=== PATIENT | male | born 1960 | race Caucasian/White ===

== ENCOUNTER 2017-09-03 06:01 | Inpatient (IN) | payer BC ==
[2017-09-03] MEDS ORDERED: Ketamine 50 MG/ML VIAL ONE (06:11)
[2017-09-03] MEDS ORDERED: Albumin 5% 500 ML ONE (06:11)
[2017-09-03] MEDS ORDERED: Midazolam HCl 2 mg/2 ml Vial ONE ×2 (06:11→06:35)
[2017-09-03] MEDS ORDERED: Fentanyl 100 MCG/2 ML VIAL ONE ×7 (06:11→13:29)
[2017-09-03] MEDS ORDERED: Ketorolac Tromethamine 30 MG/ML VIAL ONE (06:39)
[2017-09-03] MEDS ORDERED: Cefepime 2 GM, Syringe 2.5 ML in Sterile Water 10 ML SLOW IVP SCH (06:45)
[2017-09-03] MEDS ORDERED: Insulin Regular 300 UNITS/3 ML VIAL ONE (06:50)
[2017-09-03 06:52] LABS: #Basophils 0.1 thou/uL (0.0-0.2); #Eosinphils 0.7 thou/uL (0.0-0.7); #Lymphocytes 2.7 thou/uL (1.20-3.40); #Monocytes 0.7 thou/uL (0.11-0.59); #Neutrophils 5.6 thou/uL (1.40-6.50); %Basophils 0.5 % (0.0-1.0); %Eosinophils 7.2 % (0.0-10.0); %Lymphocytes 27.8 % (21.0-51.0); %Monocytes 7.3 % (0.0-10.0); %Neutrophils 57.2 % (42.0-75.0); Hemoglobin 16.3 g/dL (14.0-18.0); Mean Corpuscular HGB CONC 32.4 g/dL (32.0-36.0); Mean Corpuscular Hemoglobin 26.8 pg (27.0-31.0); Mean Corpuscular Volume 82.5 fl (80.0-94.0); Mean Platelet Volume 9.3 fL (7.4-10.4); Platelet Count 211 thou/uL (130-400); RBC Distribution Width 13.2 % (11.5-14.5); White Blood Cell (WBC) Count 9.7 thou/uL (4.8-10.8)
[2017-09-03] MEDS ORDERED: Lidocaine 1% w/Epinephrine 1:200K 30 ML VIAL ONE (07:09)
[2017-09-03 07:15] LABS: Hemoglobin A1c 10.6 % (4.0-6.0)
[2017-09-03 07:22] LABS: Anion Gap 16 mmol/L (10-20); BUN (Urea Nitrogen) 14 mg/dL (8.4-25.7); Calc. Creatinine Clearance 85 mL/min (70-130); Carbon Dioxide 22 mmol/L (22-29); Chloride 99 mmol/L (98-107); Estimated GFR-MDRD 57; Glucose 290 mg/dL (70-105); Potassium 3.9 mmol/L (3.5-5.1); Sodium 133 mmol/L (136-145)
[2017-09-03] MEDS ORDERED: cefOXitin 2 GM in Sodium Chloride 0.9% 100 ML IVPB SCH ×2 (07:30→14:25)
[2017-09-03] MEDS ORDERED: cefOXitin 2 GM VIAL ONE (09:55)
[2017-09-03] MEDS ORDERED: Bupivacaine HCl 0.5%/Epinephrine 1:200,000/PF 30 ml Vial ONE (10:43)
[2017-09-03] MEDS ORDERED: Bupivacaine PF 0.5% 30 ML VIAL ONE (10:43)
[2017-09-03] MEDS ORDERED: Glycopyrrolate 0.2 MG/ML 5 ML SYRINGE ONE (11:24)
[2017-09-03] MEDS ORDERED: Dexamethasone 20 MG/5 ML VIAL ONE (11:24)
[2017-09-03] MEDS ORDERED: Propofol 200 MG/20 ML VIAL ONE (11:24)
[2017-09-03] MEDS ORDERED: Ondansetron HCl/PF 4 MG/2 ML Vial ONE (11:24)
[2017-09-03] MEDS ORDERED: PHENYLEPHRINE-NS 100 MCG/ML 10 ML SYRINGE ONE (11:24)
[2017-09-03] MEDS ORDERED: Promethazine HCl 25 MG/ML VIAL SLOW IVP PRN (11:43)
[2017-09-03] MEDS ORDERED: Ondansetron HCl/PF 4 MG/2 ML Vial IVP PRN ×2 (11:43→14:25)
[2017-09-03] MEDS ORDERED: HYDROmorphone 2 MG/ML VIAL SLOW IVP PRN (11:43)
[2017-09-03] MEDS ORDERED: Promethazine HCl 25 MG/ML VIAL IM PRN ×2 (11:43→14:25)
[2017-09-03] MEDS ORDERED: Labetalol HCl 100 MG/20 ML VIAL ONE (13:17)
[2017-09-03] MEDS ORDERED: Morphine 2 MG/ML SYRINGE SLOW IVP PRN (14:25)
[2017-09-03] MEDS ORDERED: Post-Op Insulin Drip Protocol IVPB ONE (14:25)
[2017-09-03] MEDS ORDERED: hydrALAZINE 20 MG/ML VIAL SLOW IVP PRN (14:25)
[2017-09-03] MEDS ORDERED: Dextrose 50% Abboject 50 ML SYRINGE SLOW IVP PRN (14:39)
[2017-09-03] MEDS ORDERED: Insulin Regular 300 UNITS/3 ML VIAL SC PRN (14:39)
[2017-09-03] MEDS ORDERED: Dextrose 5% in Water 1,000 ML IV PRN (14:39)
[2017-09-03 15:18] VITALS: BMI 30.7
[2017-09-03] MEDS: Sodium Chloride 0.9% 1,000 ML IV SCH (16:24)
[2017-09-03] MEDS: Ketorolac Tromethamine 30 MG/ML VIAL IVP SCH ×2 (16:24→20:57)
[2017-09-03] MEDS: Acetaminophen 1,000 MG in Premix Bag 1 BAG IVPB SCH ×2 (16:25→20:55)
[2017-09-03] MEDS: Mometasone/Formoterol 120 PUFF INHALER INH SCH (18:23)
[2017-09-03] MEDS: cefOXitin 2 GM, Syringe 1 ML in Sterile Water 10 ML SLOW IVP SCH (18:49)
[2017-09-03] MEDS: Morphine 2 MG/ML SYRINGE SLOW IVP PRN (18:49)
[2017-09-03] MEDS: Enoxaparin Sodium 40 MG/0.4 ML SYRINGE SC SCH (20:55)
[2017-09-03] MEDS: Citalopram 20 MG TAB PO SCH (20:57)
[2017-09-03] MEDS: Atorvastatin Calcium 40 MG TAB PO SCH (20:57)
[2017-09-03] MEDS: Famotidine 20 MG TAB PO SCH (20:59)
[2017-09-03] MEDS ORDERED: Famotidine/PF 20 mg/2ml Vial SLOW IVP SCH (21:00)
[2017-09-03] MEDS: Mirtazapine 30 MG TAB PO SCH (22:21)
[2017-09-04] MEDS: Sodium Chloride 0.9% 1,000 ML IV SCH ×3 (00:03→17:01)
[2017-09-04] MEDS: Ketorolac Tromethamine 30 MG/ML VIAL IVP SCH ×4 (02:18→21:26)
[2017-09-04] MEDS: cefOXitin 2 GM, Syringe 1 ML in Sterile Water 10 ML SLOW IVP SCH (02:18)
[2017-09-04] MEDS: Acetaminophen 1,000 MG in Premix Bag 1 BAG IVPB SCH ×2 (02:19→10:23)
[2017-09-04 04:20] LABS: #Lymphocytes 1.3 thou/uL (1.20-3.40); #Neutrophils 7.9 thou/uL (1.40-6.50); %Basophils 0.1 % (0.0-1.0); %Eosinophils 0.1 % (0.0-10.0); %Monocytes 9.3 % (0.0-10.0); %Neutrophils 77.6 % (42.0-75.0); Hemoglobin 12.4 g/dL (14.0-18.0); Mean Corpuscular HGB CONC 32.3 g/dL (32.0-36.0); Mean Corpuscular Hemoglobin 26.9 pg (27.0-31.0); Mean Corpuscular Volume 83.3 fl (80.0-94.0); Mean Platelet Volume 9.1 fL (7.4-10.4); Platelet Count 160 thou/uL (130-400); White Blood Cell (WBC) Count 10.2 thou/uL (4.8-10.8)
[2017-09-04 04:52] LABS: Anion Gap 12 mmol/L (10-20); BUN (Urea Nitrogen) 15 mg/dL (8.4-25.7); Calc. Creatinine Clearance 90 mL/min (70-130); Calcium 8.3 mg/dL (7.8-10.44); Carbon Dioxide 23 mmol/L (22-29); Chloride 105 mmol/L (98-107); Estimated GFR-MDRD 67; Glucose 141 mg/dL (70-105); Potassium 4.1 mmol/L (3.5-5.1); Sodium 136 mmol/L (136-145)
[2017-09-04] MEDS: Mometasone/Formoterol 120 PUFF INHALER INH SCH ×2 (07:50→18:55)
[2017-09-04] MEDS ORDERED: Insulin Detemir 100 UNITS/ML 20 UNITS in Pre-Filled Syringe 1 EACH SC SCH (08:45)
--- NOTE | 2017-09-04 10:07 | PRG ---
DATE OF SERVICE: 09/04/2017 SUBJECTIVE: Mr. Lebron is postoperative day #1 from laparoscopic sigmoid colectomy for diverticuli tis. His operation was relatively prolonged secondary to his intra-abdominal obesity and repair of a n air leak in his stapled anastomosis. He has been in the intermediate care unit overnight on an ins ulin drip. His blood sugars have been well controlled. For most of the night, he was on 4.5 units o f insulin per hour. His blood sugars since he arrived here have never gone higher than 170. Most of the night, it has been around 130. He has no complaints at this time. He notes mild appropriate discomfort. He unfortunately has not b een out of bed yet here in the IM. OBJECTIVE: VITAL SIGNS: On examination, he is afebrile. His temperature is 98, pulse is 71, blood pressure is 113/73. GENERAL: He is resting comfortably in bed. He tells me he got reasonable amount of sleep. He has r eceived intravenous narcotics only couple of times since surgery. His urine output was over 1 liter overnight. His pelvic drained about 90 mL for all of yesterday since surgery. LUNGS: Clear to auscultation. CARDIAC: Regular rate and rhythm without murmur. ABDOMEN: Obese, but soft with normoactive bowel sounds. All incisions are nicely healed. Drain sit e in the right lower quadrant appears to be healing well also. LABORATORY STUDIES: His basic metabolic panel this morning is normal with the glucose of 140. His C BC reveals hemoglobin of 12.4, white blood cell count is 10.2. ASSESSMENT AND PLAN: In summary, he is doing well following his surgery. Per protocol, he has been maintained on the insulin drip overnight, but will be transitioned off of that this morning and trans ferred to the surgical floor to continue on the sliding scale insulin. Depending upon progress with his diet and activity, I would anticipate discharge within the next 24-48 hours.
[2017-09-04] MEDS: Famotidine 20 MG TAB PO SCH ×2 (10:24→21:27)
[2017-09-04] MEDS: Amlodipine 5 MG TAB PO SCH (10:24)
[2017-09-04] MEDS: Insulin Regular 300 UNITS/3 ML VIAL SC PRN (12:46)
[2017-09-04] MEDS ORDERED: HYDROcodone/Acetaminophen 7.5/325 mg Tablet PO PRN ×2 (13:00)
[2017-09-04] MEDS: Morphine 2 MG/ML SYRINGE SLOW IVP PRN (17:02)
[2017-09-04] MEDS ORDERED: Sodium Chloride 0.9% 1,000 ML IV SCH (17:30)
[2017-09-04] MEDS ORDERED: PROVENTIL INHALER 6.7 G (200 INHALATIONS) INH PRN (17:39)
[2017-09-04] MEDS: Ipratropium Bromide 2.5 ml Neb NEB SCH (20:12)
[2017-09-04] MEDS: Citalopram 20 MG TAB PO SCH (21:27)
[2017-09-04] MEDS: Enoxaparin Sodium 40 MG/0.4 ML SYRINGE SC SCH (21:27)
[2017-09-04] MEDS: Atorvastatin Calcium 40 MG TAB PO SCH (21:33)
[2017-09-04] MEDS: NPH, Human Insulin Isophane 300 UNIT/3 ML VIAL SC SCH (21:35)
[2017-09-04] MEDS: Mirtazapine 30 MG TAB PO SCH (21:59)
[2017-09-05] MEDS: Ipratropium Bromide 2.5 ml Neb NEB SCH ×3 (01:46→13:55)
[2017-09-05] MEDS: Ketorolac Tromethamine 30 MG/ML VIAL IVP SCH ×3 (03:02→15:56)
[2017-09-05 05:24] LABS: #Basophils 0.1 thou/uL (0.0-0.2); #Eosinphils 0.1 thou/uL (0.0-0.7); #Lymphocytes 1.7 thou/uL (1.20-3.40); #Monocytes 0.4 thou/uL (0.11-0.59); #Neutrophils 3.6 thou/uL (1.40-6.50); %Eosinophils 1.7 % (0.0-10.0); %Lymphocytes 28.9 % (21.0-51.0); %Monocytes 7.3 % (0.0-10.0); %Neutrophils 61.1 % (42.0-75.0); Hemoglobin 11.3 g/dL (14.0-18.0); Mean Corpuscular HGB CONC 32.4 g/dL (32.0-36.0); Mean Corpuscular Hemoglobin 27.2 pg (27.0-31.0); Mean Corpuscular Volume 84.1 fl (80.0-94.0); Mean Platelet Volume 9.3 fL (7.4-10.4); Platelet Count 124 thou/uL (130-400); Red Blood Cell (RBC) Count 4.14 mill/uL (4.70-6.10); White Blood Cell (WBC) Count 5.9 thou/uL (4.8-10.8)
--- NOTE | 2017-09-05 06:18 | OP ---
DATE OF OPERATION: 09/03/2017 PREOPERATIVE DIAGNOSIS: Diverticulitis. POSTOPERATIVE DIAGNOSIS: Diverticulitis. OPERATION PERFORMED: Laparoscopic hand-assisted sigmoid colectomy with splenic flexure mobilization. SURGEON: Dontrell Gilmore M.D. ANESTHESIA: General endotracheal. INDICATIONS: The patient is a 57-year-old white male. He has been hospitalized several times recent ly with documented diverticulitis. He presents at this time for elective sigmoid colectomy. He has undergone preoperative mechanical and antibiotic bowel prep. He was encouraged to lose weight in pre paration for surgery secondary his extensive abdominal obesity; however, he unfortunately did not do so. DESCRIPTION OF OPERATIVE: Informed consent was obtained. The patient was taken to the operating mikaela m where general endotracheal anesthesia was obtained with the patient in the supine position. The ab domen was prepped with ChloraPrep and draped in sterile fashion. Local anesthetic was infiltrated an d a 5-mm supraumbilical incision was created through, which a Veress needle was passed into the perit teixeira cavity. Pneumoperitoneum was established using carbon dioxide up to a pressure of 15 mmHg. A 5-mm trocar port was passed through this same incision. Laparoscopic camera was passed through this port. Under direct vision, a 12-mm right lower quadrant port was placed. The abdomen and pelvis wer e examined. I selected a site for the colon extraction in the left lower quadrant. An 8-cm oblique left lower quadrant incision was created and muscle splitting technique was used to gain access into the abdominal cavity. The Paulino wound retractor was placed followed by the GelPort. Left hand was passed into the abdominal cavity and dissection was continued. There were adhesions to the anterior abdominal wall in the left lower quadrant. These were taken down using LigaSure. They were also extensive omental adhesions in the right lower quadrant. These were mobilized as was the terminal ileum. The patient was placed into extreme Trendelenburg position to attempt to mobilize th e small bowel and omentum into the upper abdomen. Due to his obesity, this was found to be difficult . Laparotomy pad was placed in the abdomen to assist with this. Attention was then turned to the si gmoid colon. This was mobilized from the lateral abdominal wall using the LigaSure device. I mobili zed the sigmoid colon and the left colon superiorly by incising the white line of Toldt. At all poin ts, this dissection was challenging. I was able to mobilize up to the splenic flexure. I then mobil ized the omentum off of the distal transverse colon in order to fully mobilize the splenic flexure. Once adequate mobility was obtained, attention was turned towards the pelvis. The area of dominant d iverticular disease was clearly identified in the sigmoid colon. I dissected the peritoneal lining o f the distal sigmoid colon extending down into the pelvis alongside the rectum of the patient's right side. I then mobilized the peritoneum on the left side as well. I was able to clearly identify by palpation and visualization the rectosigmoid junction, which was clearly free of disease. The mesent keenan at this port was divided with the LigaSure device. A mesenteric window was created, and at this point, the upper rectum was divided with a single fire of the blue load of the [place] stapler. The mesentery was taken down close to the bowel in an ascending fashion using the LigaSure. After mobili zing a little over 5 cm, I identified a segment of the descending colon that would easily reach down into the pelvis for an anastomosis. This was marked with the LigaSure device. The operation was the n continued externally as the colon was mobilized externally. The segment that had been marked was i dentified. The mesentery up to this segment was fully taken down using the LigaSure device. The wound was draped with sterile towels. A colotomy was created and EEA sizers were used to calibra te the size of the opening. This was found to be relatively narrow and would not tolerate more than a 28-mm sizer. I then opened the 29-mm EEA stapler and the anvil of this stapler was passed through the colotomy a few centimeters distally and brought out antimesenteric. The colotomy was then exclud ed in continuity with the segment to be resected with a final firing of the [place] stapler. This se gment of colon was passed off the field. All instruments utilized while the colon was opened were pa ssed off the field, as was the cautery and suction. Gloves were changed at this point. The post of the anvil was cleansed with Betadine. A pursestring suture of 3-0 Prolene was placed rich und the base of the anvil and the proximal segment of colon was dropped back down into the abdominal cavity. From below, the EEA sizers were gently passed up to the rectal staple line under visible and palpable guidance. The 29-mm stapler was then advanced up to the staple line and the spike was advanced. Th e 2 segments of bowel were approximated and then anastomosed by firing the stapler. When the stapler was withdrawn, the donuts were inspected and found to be of excellent quality. The anastomosis was then inspected to make sure that it was airtight with an insufflation test. Unfo rtunately, there were 2 separate air leaks. One of these was in the central anterior aspect and one was to the left anterior aspect. I buttressed the anterior staple line with 3 interrupted figure-of- eight sutures of 3-0 Vicryl. These were each tied extracorporeally. The air leak test was repeated several times, and after placing a third suture, there was no evidence of any further leakage in spit e of high pressure insufflation. All irrigant was aspirated. A #19 round fluted drain was obtained and brought out through the right lower quadrant incision and positioned down within the pelvis. The fascial defect in the right lower quadrant wound was closed with 0 Vicryl suture using a GraNee need le. All ports and instruments were removed under direct vision. Pneumoperitoneum was carefully evac uated. A 0.25% percent Marcaine with epinephrine was infiltrated into each port site. The abdominal wall was cleansed, and all laparoscopic instrumentation was removed from the field. Go wns and gloves were changed. Four sterile towels were placed around the abdomen in preparation for c losing. The fascia was closed in 2 layers using running suture of #1 PDS. The pulse chlorine plant operator devic e was utilized to irrigate the wound with copious saline. During each layer of closing. A total of 2 liters of irrigant was used. The remainder of the wound was closed in layers with 3-0 and 4-0 [place] cryl and Dermabond was placed externally. The laparoscopic port site was closed with 4-0 Monocryl an d Dermabond. The drain was secured externally with 3-0 nylon suture and a sterile occlusive dressing was applied. There were no complications. Blood loss was negligible. The patient tolerated the pr ocedure well and was taken to recovery room in stable condition.
[2017-09-05] MEDS: Mometasone/Formoterol 120 PUFF INHALER INH SCH (07:06)
[2017-09-05] MEDS ORDERED: Sodium Chloride 0.9% 1,000 ML IV SCH (07:45)
[2017-09-05] MEDS: Famotidine 20 MG TAB PO SCH (09:20)
[2017-09-05] MEDS: Amlodipine 5 MG TAB PO SCH (09:26)
[2017-09-05] MEDS: NPH, Human Insulin Isophane 300 UNIT/3 ML VIAL SC SCH (09:26)
[2017-09-05] MEDS: Insulin Regular 300 UNITS/3 ML VIAL SC PRN (11:57)
[2017-09-05 16:26] VITALS: BP 132/79; TEMP 97.8
--- NOTE | 2017-09-05 19:51 | EKG ---
Test Reason : PREOP Blood Pressure : / mmHG Vent. Rate : 090 BPM Atrial Rate : 090 BPM P-R Int : 174 ms QRS Dur : 088 ms QT Int : 368 ms P-R-T Axes : 065 -64 039 degrees QTc Int : 450 ms Normal sinus rhythm Left axis deviation Inferior infarct , age undetermined Cannot rule out Anterior infarct , age undetermined Abnormal ECG Confirmed by YVETTE MAR, DR. Casas ([id number]) on 09/05/2017 7:51:24 PM Referred By: MAKENZIE Confirmed By:DR. Yessenia CRAWFORD MD
--- NOTE | 2017-09-05 22:51 | DIS ---
DATE OF ADMISSION: 09/03/2017 DATE OF DISCHARGE: 09/05/2017 ADMISSION DIAGNOSIS: Sigmoid colon diverticulitis. DISCHARGE DIAGNOSIS: Sigmoid colon diverticulitis. OPERATIONS AND PROCEDURES PERFORMED: Hand-assisted laparoscopic sigmoid colectomy. SURGEON: Dontrell Gilmore M.D. ADMISSION HISTORY: The patient is a 57-year-old white male with central abdominal obesity and divert iculitis. He presented at this time for a sigmoid colectomy. HOSPITAL COURSE: He underwent uneventful surgery on the day of admission. He did have an air leak d uring his leak test and his anastomosis was oversewed with Vicryl suture. The drain was placed withi n the pelvis. The patient has had an uneventful recovery. He has had no substantial postoperative i leus. He tolerated clear liquids on postoperative day #1 and full liquids on postoperative day #2. He has had several bowel movements and has been having flatus. He denies belching, nausea, or vomiti ng. He has been afebrile with normal vital signs. His laboratory studies have been unremarkable. Carlos florez is stable at this time for discharge home. He is given a prescription for [place] to use as necessar y. He is instructed to resume all home medications including his insulin. His drain will be removed prior to discharge. I will see him back in my office in 10 to 14 days for routine followup.
== END 2017-09-05 18:50 | disposition home or self-care (01) | DRG 330 ==
LOC: SURG A 06:01 → IMCU/EMU 13:13 → SJJU 09-04 15:56
PROVIDERS: ADMIT Specialist; ATTEND Specialist
PROC: 0DTN0ZZ Resection of Sigmoid Colon, Open Approach (ICD-10-PCS; principal; 2017-09-03)
DX: K57.32 Diverticulitis of large intestine without perforation or abscess without bleeding (principal); J95.812 Postprocedural air leak; E66.9 Obesity, unspecified; E11.9 Type 2 diabetes mellitus without complications; I10 Essential (primary) hypertension; I25.10 Atherosclerotic heart disease of native coronary artery without angina pectoris; Z68.31 Body mass index [BMI] 31.0-31.9, adult; Z88.2 Allergy status to sulfonamides; Z79.82 Long term (current) use of aspirin; Z79.4 Long term (current) use of insulin; Z79.899 Other long term (current) drug therapy
CPT/HCPCS: 36415; 36416; 80048; 83036; 85025; 88307; 93005; 93010; A4216; J0131; J0670; J0692; J0694; J1100; J1650; J1815; J1885; J2250; J2270; J2405; J2704; J3010; J7050; J7644; P9045; S0020

== ENCOUNTER 2018-08-29 12:21 | Emergency (ER) | payer BC ==
[2018-08-29] MEDS ORDERED: Morphine 4 MG/ML VIAL ONE (15:37)
--- NOTE | 2018-08-29 22:37 | CON ---
DATE OF CONSULTATION: 08/29/2018 CONSULTING: Emergency Room. CONSULTED: Dr. Nova. REASON FOR CONSULTATION: Left ureteral stone with calyceal rupture. HISTORY OF PRESENT ILLNESS: Mr. Lebron is a 58-year-old white male, who presented to the emergency room with a 1-day history of left flank pain. He did not have any associated nausea, vomiting, or fevers, and the pain started in his left flank without radiation to the groin. The pain was rated as a 7/10 and so he came into the emergency room due to the uncontrolled pain initially at an outside ER and was then transferred to [facility]. He underwent a CT which demonstrated a 2-mm distal left ureterovesical junction stone with associated collecting system rupture. I was consulted for further assistance. On my discussion with the patient, he states again that he has not had any fevers or chills, nausea or vomiting. His pain is currently 7/10, but he has not received pain medication since leaving the other ER and is hurting somewhat again. He has never had kidney stones and this is his first stone. He states that he normally urinates without much difficulty and he denies any significant hematuria or any history of hematuria, UTI, previous urologic surgeries, or other stones. ALLERGIES: SULFA. HOME MEDICATIONS: 1. Aspirin. 2. Amlodipine. 3. Neurontin. 4. Metformin. 5. Proventil. 6. Protonix. 7. Atorvastatin. 8. Isosorbide mononitrate. 9. Symbicort. 10. Spiriva. 11. Citalopram. 12. Loratadine. 13. Glipizide. 14. Mirtazapine. 15. Carafate. 16. Trulicity. PAST MEDICAL HISTORY: 1. Type 2 diabetes. 2. Gastroesophageal reflux disease. 3. Hyperlipidemia. 4. High cholesterol. 5. Hypertension. 6. Osteoarthritis. 7. COPD. 8. Cardiomyopathy. 9. Diverticulitis. PAST SURGICAL HISTORY: 1. Cholecystectomy. 2. Tonsillectomy. 3. Pacemaker placement. 4. Partial colectomy. SOCIAL HISTORY: The patient has no smoking history. Denies alcohol use or illicit drug use. FAMILY HISTORY: Noncontributory for stone disease. REVIEW OF SYSTEMS: A 12-point review of systems reviewed and otherwise negative other than comments in the HPI specifically with the patient's flank pain. The patient is not complaining of any other issues. PHYSICAL EXAMINATION: VITAL SIGNS: Temperature 97.7, pulse 76, respirations 17, blood pressure 183/84, saturation 95% on room air. Pain 7/10. GENERAL: No apparent distress, sitting comfortably in bed, talking with me. No wincing or grimacing features. Well-nourished, well-developed obese male. HEENT: Normocephalic and atraumatic. Sclerae nonicteric. Pupils symmetric and round. Trachea midline. Moist mucous membranes. CARDIOVASCULAR: Regular rate and rhythm. Normal S1 and S2. Symmetric pulses. CHEST: No increased work of breathing. Symmetric expansion. LUNGS: Clear to auscultation. ABDOMEN: Soft, nontender, and nondistended. Positive bowel sounds. No organomegaly or suprapubic tenderness. There is mild left CVA tenderness. : Deferred at this time. MUSCULOSKELETAL: No joint deformities or joint erythema noted. Full range of motion. SKIN: Warm and dry. No rashes or lesions. Good turgor. NEUROLOGIC: Cranial nerves 2 through 12 grossly intact. No focal or sensory motor deficits identified. PSYCHIATRIC: Alert and oriented x3. Appropriate mood and affect. LABORATORY DATA: Full set of labs are in the [facility] system. Of note, the patient's creatinine is mildly elevated at 1.39 with a sodium of 134. Urinalysis demonstrates glucose over 1000, ketones trace, blood trace, nitrite negative, leukocyte esterase negative. No bacteria or WBC seen. CT demonstrated 2 mm left ureterovesical junction calculus with associated collecting system rupture on the left with other chronic findings including diverticula without fat stranding or evidence of bowel obstruction. ASSESSMENT AND PLAN: A 58-year-old white male with a left ureterovesical junction stone with likely calyceal rupture with a minimal amount of urine around the kidney. He has no evidence of infection. No fevers and only very mild impairment of his renal function. There is no strong indication to intervene at this time as the patient seems to be doing quite well. With 2 mm stone, he has 90% chance that he will pass that within a week with tamsulosin. I would recommend hydrocodone for pain medication, tamsulosin for medical expulsive therapy and hydration. He should attempt to keep his blood sugar as well controlled as possible. I recommended he perform light activities only and avoid anything strenuous and avoid driving until he knows how the hydrocodone reacts with him. I will plan to see him back in 1 week with a new BMP to ensure that his renal function is normal or at least not worsening and that he has passed his stone. If he has not yet passed the stone, then I would make recommendations to go ahead and perform a ureteroscopy and remove the stone. I have discussed this all with the patient and he is agreement with the plan. I think he can be discharged home at this time. SUMMARY OF RECOMMENDATIONS: 1. Flomax. 2. Pain medication. 3. Okay to discharge home. 4. Follow up in 1 week with a BMP. 5. We will plan surgery if the patient fails to pass the stone in one week, develops fevers, uncontrolled pain, or persistent vomiting. Job ID: [id number]
== END 2018-08-29 16:03 | disposition home or self-care (01) ==
LOC: ERS 12:21
DX: N20.0 Calculus of kidney (principal); N28.89 Other specified disorders of kidney and ureter; I25.10 Atherosclerotic heart disease of native coronary artery without angina pectoris; E11.9 Type 2 diabetes mellitus without complications; K21.9 Gastro-esophageal reflux disease without esophagitis; E78.00 Pure hypercholesterolemia, unspecified; I10 Essential (primary) hypertension; J44.9 Chronic obstructive pulmonary disease, unspecified; F32.9 Major depressive disorder, single episode, unspecified
CPT/HCPCS: 96374; J2270

== ENCOUNTER 2018-09-05 13:29 | Outpatient (CLI) | payer BC | END 2018-09-05 13:30 | disposition home or self-care (01) | LOC: LABBT 13:29 | PROVIDERS: ATTEND Urology | DX: Z01.818 Encounter for other preprocedural examination (principal); N20.1 Calculus of ureter | CPT/HCPCS: 81001; 87086; 93005; 93010 ==

== ENCOUNTER 2018-09-11 11:07 | Day surgery (SDC) | payer BC ==
[2018-09-05 14:01] VITALS: BMI 31.4
[2018-09-11] MEDS ORDERED: Levofloxacin 500 mg/D5W 100 ml Premix Bag ONE ×2 (13:36→14:38)
[2018-09-11] MEDS ORDERED: Fentanyl 100 MCG/2 ML VIAL ONE ×2 (14:43→16:42)
[2018-09-11] MEDS ORDERED: Iothalamate Meglumine 60% 50 ML VIAL FS ONE (14:48)
[2018-09-11] MEDS ORDERED: B & O ONE (14:50)
[2018-09-11] MEDS ORDERED: Dexamethasone 20 MG/5 ML VIAL ONE (15:42)
[2018-09-11] MEDS ORDERED: Lidocaine 1% PF 5 ML VIAL ONE (15:42)
[2018-09-11] MEDS ORDERED: Ketorolac Tromethamine 30 MG/ML VIAL ONE (15:42)
[2018-09-11] MEDS ORDERED: Ondansetron PF 4 MG/2 ML Vial ONE (15:42)
[2018-09-11] MEDS ORDERED: Glycopyrrolate 0.2 MG/ML 5 ML SYRINGE ONE (15:42)
[2018-09-11] MEDS ORDERED: PROPOFOL 200 MG/20 ML VIAL ONE (15:42)
[2018-09-11] MEDS ORDERED: Rocuronium Bromide 10 MG/ML (10ML VIAL) ONE (15:42)
--- NOTE | 2018-09-11 16:26 | OP ---
DATE OF PROCEDURE: 09/11/2018 SERVICE: Urology. PREOPERATIVE DIAGNOSIS: Left distal ureteral stone. POSTOPERATIVE DIAGNOSIS: Left ureteral stricture with renal stone. PROCEDURE PERFORMED: Ureteroscopy, dilation of ureteral stricture, basket extraction of stones, and placement of a 6 x 26 double-J stent. INDICATIONS FOR PROCEDURE: Mr. Lebron is a 58-year-old white male, who initially presented to the ER with left flank pain and a calyceal rupture. He was diagnosed with a 2-to 3-mm distal left ureteral stone. We waited for trial of passage for the stone, but the patient states he never passed a stone and he has continued to be in significant pain. We are now bringing him to the operating room for treatment of the stone. DESCRIPTION OF PROCEDURE: After identification of armband and verification of consent, the patient was brought back to the operating room. He underwent general anesthesia with an LMA. He was then placed in dorsal lithotomy position and prepped and draped in usual sterile fashion. After appropriate time-out, a lubricated 22-Cymro rigid cystoscope was introduced per urethra into the bladder and attention was turned to the left ureteral orifice. This was cannulated with a 0.035 Sensor wire up to the level of the renal pelvis. The cystoscope was then removed after emptying the bladder leaving the Sensor wire in place as a safety wire. A semi-rigid ureteroscope was then brought in alongside the Sensor wire through the urethra into the bladder and then into the distal left ureter, where an extremely narrow segment was found. Attempts to dilate this using the inner sheath of a ureteral access sheath, an 11-Cymro dilator was unable to be passed. Reinspecting the stricture with the ureteroscope, it did appear to be an actual stricture rather than just a narrowed segment. As such, I figured to formally balloon dilate this, so the area was marked radiographically and then a UroMax balloon dilator with a 12-Cymro 4-cm dilator was brought in through the ureter over the wire with a radiopaque markers positioned on either side of the stricture. The balloon was inflated to 26 atmospheres for a length of 4 cm to fully dilate. The balloon was taken down and the balloon was removed. The ureteroscope was then brought back in to perform ureteroscopy alongside the Sensor wire into the distal ureter. The stricture was now widely patent and inspection demonstrated no ureteral stone. It was certainly possible that after the balloon was removed, that the stone immediately passed without my knowledge, but I did not see the stone within the ureter at this point to make sure that the stone had not inadvertently been blown retrograde up into the kidney, I felt it would be best to go perform a diagnostic ureteroscopy to ensure that there were no other stones within the kidney. Therefore, the semi-rigid ureteroscope was withdrawn and the same ureteral access sheath, which we had opened before, was brought in over the Sensor wire and placed up into the distal to mid ureter. This was an 11/13 x 28 cm ureteral access sheath. The inner cannula and the Sensor wire were then removed leaving the sheath in place. A flexible digital ureteroscope was passed through the ureteral access sheath into the mid to proximal ureter and no stone was seen. Full inspection of the kidney was performed and there were two small renal stones, which were adherent to the renal papilla. This would not be the stones that we had previously been seen as they were fixed to the papilla indicating that they were new stone formation. Both of them were able to be grasped with a 1.9-Cymro Zero Tip Nitinol basket and extracted for stone analysis. No other stones were seen within the kidney. Pull-back ureteroscopy was employed and no other stones were seen within the ureter. Satisfied that the stone had either passed previously or it passed after the balloon dilation, I felt that there was no other treatment needed other than just the stent. The ureteral access sheath was then removed along with the ureteroscope. The cystoscope was then put back into the bladder and the Sensor wire was readvanced through the ureteral orifice back up into the kidney. A 6 x 26 double-J stent was advanced over the Sensor wire up to the level of the renal pelvis. The wire was then removed leaving a good curl in the pelvis and good curl in the bladder. Bladder was then emptied and the cystoscope was removed. The patient was then awakened and taken to PACU for recovery in stable condition. A 16-A, B and O suppository was placed in his rectum prior to awakening. COMPLICATIONS: None. ESTIMATED BLOOD LOSS: Minimal. RETAINED TUBES AND DRAINS: 6 x 26 double-J stent on the left. SPECIMENS: Stones for stone analysis. DISPOSITION: The patient will be discharged home and follow up with me in approximately 2 weeks for cystoscopy and stent removal. Job ID: [id number]
[2018-09-11] MEDS ORDERED: Phenazopyridine HCl 97.5 MG TABLET ONE ×2 (16:58)
[2018-09-11] MEDS ORDERED: Oxybutynin 5 MG TAB ONE (16:58)
[2018-09-17 08:20] LABS: CA Oxalate Monohydrate 95 % (.); Color Tan (.); Comment Note: (.); Stone Size 2x1x1 mm (.); Stone Weight Less than 1.0 mg (.)
== END 2018-09-11 19:32 | disposition home or self-care (01) ==
LOC: SDC 11:07
PROVIDERS: ATTEND Urology
PROC: 0TC78ZZ Extirpation of Matter from Left Ureter, Via Natural or Artificial Opening Endoscopic (ICD-10-PCS; principal; 2018-09-11)
PROC: 0T778DZ Dilation of Left Ureter with Intraluminal Device, Via Natural or Artificial Opening Endoscopic (ICD-10-PCS; principal; 2018-09-11)
DX: N20.2 Calculus of kidney with calculus of ureter (principal); J44.9 Chronic obstructive pulmonary disease, unspecified; E11.9 Type 2 diabetes mellitus without complications; I10 Essential (primary) hypertension; I25.10 Atherosclerotic heart disease of native coronary artery without angina pectoris; Z79.4 Long term (current) use of insulin; Z79.82 Long term (current) use of aspirin; Z79.899 Other long term (current) drug therapy; Z88.2 Allergy status to sulfonamides; Z95.0 Presence of cardiac pacemaker; Z90.49 Acquired absence of other specified parts of digestive tract
CPT/HCPCS: 36416; 76000; 82365; 88300; C1769; J1100; J1885; J1956; J2001; J2405; J2704; J3010; J3490; Q9961

== ENCOUNTER 2018-10-30 14:21 | Outpatient (CLI) | payer BC ==
--- NOTE | 2018-10-30 15:36 | ULT ---
BILATERAL RENAL ULTRASOUND: HISTORY: Left-sided abdominal and flank pain. Kidney stones. FINDINGS: The right kidney measures 9.8 cm in length and the left kidney measures 10.5 cm in length. No focal mass or hydronephrosis is seen on either side. There is a 6 mm echogenic focus in the inferior aspec t of the left kidney without significant shadowing. The urinary bladder has a normal appearance and demonstrates both ureteral jets. There is complete emptying of the urinary bladder on the postvoid i mages. IMPRESSION: Probable nonobstructing 6 mm left renal calculus. POS: BETHANY
== END 2018-10-30 14:22 | disposition home or self-care (01) ==
LOC: SCSULT 14:21
PROVIDERS: ATTEND Urology
DX: N20.0 Calculus of kidney (principal)
CPT/HCPCS: 76770

== ENCOUNTER 2019-05-21 14:39 | Emergency (ER) | payer BC, OTHER ==
--- NOTE | 2019-05-21 15:51 | ULT ---
ULTRASOUND WITH DOPPLER DUPLEX VENOUS LOWER EXTREMITY LEFT CPT: 82181 ICD-10-PCS: B54D HISTORY: Left lower extremity pain. TECHNIQUE: Color flow Doppler, spectral waveform analysis of pulsed Doppler, and chiang-scale imaging with mary beth ramesh and augmentation, were used to evaluate the left common femoral, femoral, popliteal, posterior t ibial, and superficial femoral, veins; and the proximal portions of the profunda femoral and greater saphenous, veins. FINDINGS: There is appropriate compressibility and flow within the imaged deep vein system of the left lower ex tremity. IMPRESSION: No DVT. POS: C
== END 2019-05-21 17:31 | disposition home or self-care (01) ==
LOC: ERS 14:39
DX: R06.02 Shortness of breath (principal); M79.605 Pain in left leg; I25.10 Atherosclerotic heart disease of native coronary artery without angina pectoris; I11.0 Hypertensive heart disease with heart failure; I50.9 Heart failure, unspecified; E11.9 Type 2 diabetes mellitus without complications; E78.00 Pure hypercholesterolemia, unspecified; M19.90 Unspecified osteoarthritis, unspecified site; J44.9 Chronic obstructive pulmonary disease, unspecified; K21.9 Gastro-esophageal reflux disease without esophagitis; F41.9 Anxiety disorder, unspecified; F32.9 Major depressive disorder, single episode, unspecified
CPT/HCPCS: 83880

== ENCOUNTER 2020-02-10 14:03 | Emergency (ER) | payer BC, OTHER ==
[2020-02-10] MEDS ORDERED: methylPREDNISolone Sod Succ/PF 125 MG/2 ML VIAL ONE (14:44)
[2020-02-10] MEDS ORDERED: Magnesium 2 GM/50 ML BAG (IN WATER) ONE (14:44)
[2020-02-10] MEDS ORDERED: Albuterol 200 PUFF (6.7GM INHALER) ONE (14:45)
--- NOTE | 2020-02-10 15:18 | RAD ---
EXAM: CHEST ONE VIEW PORTABLE: 02/10/20 HISTORY: Shortness of breath, cough. COMPARISON: 02/10/20 exam. Left ICD. IMPRESSION: Stable chest. Left ICD. No significant acute process. POS: RRE
[2020-02-10 15:23] LABS: #Basophils 0.1 thou/uL (0.0-0.2); #Eosinphils 0.7 thou/uL (0.0-0.7); #Lymphocytes 2.5 thou/uL (1.20-3.40); #Monocytes 0.7 thou/uL (0.11-0.59); #Neutrophils 6.3 thou/uL (1.40-6.50); %Basophils 0.7 % (0.0-1.0); %Eosinophils 7.1 % (0.0-10.0); %Lymphocytes 24.6 % (21.0-51.0); %Monocytes 6.3 % (0.0-10.0); %Neutrophils 61.2 % (42.0-75.0); Mean Corpuscular HGB CONC 32.1 g/dL (32.0-36.0); Mean Corpuscular Hemoglobin 24.7 pg (27.0-31.0); Mean Corpuscular Volume 76.9 fL (78.0-98.0); Mean Platelet Volume 10.1 fL (7.4-10.4); Platelet Count 206 thou/uL (130-400); RBC Distribution Width 14.7 % (11.5-14.5); Red Blood Cell (RBC) Count 6.09 mill/uL (4.70-6.10); White Blood Cell (WBC) Count 10.2 thou/uL (4.8-10.8)
[2020-02-10 15:43] LABS: ALT (SGPT) 25 U/L (8-55); AST (SGOT) 24 U/L (5-34); Albumin 4.4 g/dL (3.5-5.0); Alkaline Phosphatase 102 U/L (40-110); Anion Gap 13 mmol/L (10-20); BUN (Urea Nitrogen) 12 mg/dL (8.4-25.7); Bilirubin, Total 0.7 mg/dL (0.2-1.2); Calc. Creatinine Clearance 0 mL/min (70-130); Calcium 9.6 mg/dL (7.8-10.44); Carbon Dioxide 24 mmol/L (22-29); Chloride 101 mmol/L (98-107); Estimated GFR-MDRD 66; Globulin 3.4 g/dL (2.4-3.5); Glucose 245 mg/dL (70-105); Potassium 4.1 mmol/L (3.5-5.1); Protein, Total 7.8 g/dL (6.0-8.3); Sodium 134 mmol/L (136-145)
--- NOTE | 2020-02-13 17:05 | EKG ---
Test Reason : Blood Pressure : / mmHG Vent. Rate : 094 BPM Atrial Rate : 094 BPM P-R Int : 162 ms QRS Dur : 088 ms QT Int : 358 ms P-R-T Axes : 063 -66 038 degrees QTc Int : 447 ms Normal sinus rhythm Left axis deviation Inferior infarct , age undetermined Possible Anterior infarct , age undetermined Abnormal ECG Confirmed by GABRIELLE HANSEN ([id number]), multimedia editor ROSSY HURLEY ([id number]) on 02/13/2020 5:05:41 PM Referred By: Confirmed By:GABRIELLE Stein
== END 2020-02-10 17:15 | disposition home or self-care (01) ==
LOC: ERS 14:03
DX: J44.1 Chronic obstructive pulmonary disease with (acute) exacerbation (principal); I25.10 Atherosclerotic heart disease of native coronary artery without angina pectoris; E11.9 Type 2 diabetes mellitus without complications; K21.9 Gastro-esophageal reflux disease without esophagitis; E78.00 Pure hypercholesterolemia, unspecified; M19.90 Unspecified osteoarthritis, unspecified site; I11.0 Hypertensive heart disease with heart failure; I50.9 Heart failure, unspecified; F41.9 Anxiety disorder, unspecified; Z79.4 Long term (current) use of insulin; Z79.82 Long term (current) use of aspirin; Z79.899 Other long term (current) drug therapy
CPT/HCPCS: 71045; 80053; 83605; 83880; 85025; 87040; 87077; 87149; 87186; 87635; 93005; 94760; 96365; 96368; 96375; J1956; J2930; J3475; U0003

== ENCOUNTER 2021-09-01 05:10 | Inpatient (IN) | payer MEDICARE, BC ==
[2021-09-01 10:22] VITALS: BMI 28.1
[2021-09-01] MEDS ORDERED: Dextrose 50% Abboject 50 ML SYRINGE SLOW IVP PRN ×2 (10:48→11:00)
[2021-09-01] MEDS ORDERED: Dextrose 5% in Water 1,000 ML IV PRN ×2 (10:48→11:00)
[2021-09-01] MEDS ORDERED: HumaLOG 300 UNITS/3 ML VIAL SC PRN ×2 (10:48)
[2021-09-01] MEDS ORDERED: predniSONE 20 MG TAB PO SCH (10:49)
[2021-09-01] MEDS ORDERED: Benzonatate 100 MG CAP PO PRN (10:53)
[2021-09-01] MEDS ORDERED: Enoxaparin Sodium 40 MG/0.4 ML SYRINGE SC SCH (12:00)
[2021-09-01] MEDS ORDERED: diphenhydrAMINE 25 MG CAP PO SCH (12:00)
[2021-09-01] MEDS ORDERED: Metoclopramide 10 MG/10 ML UDCUP PO SCH (12:00)
[2021-09-01] MEDS ORDERED: Doxycycline 100 MG CAP PO SCH (12:15)
[2021-09-01] MEDS: HumaLOG 300 UNITS/3 ML VIAL SC PRN ×3 (13:05→21:19)
[2021-09-01] MEDS ORDERED: Non-Formulary Item 1 EACH (Ventolin Hfa Inhaler [Ventolin Hfa Inhaler] 60 PUFF Inh) INH PRN (13:14)
[2021-09-01] MEDS ORDERED: Aspirin 81 mg Enteric Coated Tablet PO SCH (13:30)
[2021-09-01] MEDS ORDERED: Citalopram 20 MG TAB PO SCH ×2 (13:30→15:15)
[2021-09-01] MEDS ORDERED: Loratadine 10 MG TAB PO SCH (13:30)
[2021-09-01] MEDS: Gabapentin 300 MG CAP PO SCH ×2 (16:04→20:36)
[2021-09-01] MEDS: Mometasone 200 MCG/Formoterol 5 MCG 120 PUFF INHALER INH SCH (18:54)
[2021-09-01] MEDS: Acetaminophen 325 MG TAB PO PRN (20:36)
[2021-09-01] MEDS: Doxycycline 100 MG CAP PO SCH (20:36)
[2021-09-01] MEDS: Mirtazapine 30 MG TAB PO SCH (20:37)
[2021-09-01] MEDS ORDERED: Lantus 1000 UNITS/10 ML VIAL SC SCH ×2 (21:00)
[2021-09-02] MEDS: HumaLOG 300 UNITS/3 ML VIAL SC PRN ×4 (06:30→20:26)
[2021-09-02 06:58] LABS: #Basophils 0.1 thou/uL (0.0-0.2); #Eosinphils 0.3 thou/uL (0.0-0.7); #Lymphocytes 3.3 thou/uL (1.20-3.40); #Monocytes 0.9 thou/uL (0.11-0.59); #Neutrophils 7.2 thou/uL (1.40-6.50); %Basophils 0.6 % (0.0-1.0); %Eosinophils 2.3 % (0.0-10.0); %Lymphocytes 28.4 % (21.0-51.0); %Monocytes 7.5 % (0.0-10.0); %Neutrophils 61.2 % (42.0-75.0); Hemoglobin 15.4 g/dL (14.0-18.0); Mean Corpuscular HGB CONC 32.7 g/dL (32.0-36.0); Mean Corpuscular Hemoglobin 27.1 pg (27.0-31.0); Mean Corpuscular Volume 82.9 fL (78.0-98.0); Mean Platelet Volume 9.2 fL (7.4-10.4); Platelet Count 217 thou/uL (130-400); RBC Distribution Width 13.9 % (11.5-14.5); Red Blood Cell (RBC) Count 5.69 mill/uL (4.70-6.10); White Blood Cell (WBC) Count 11.7 thou/uL (4.8-10.8)
[2021-09-02 07:20] LABS: ALT (SGPT) 14 U/L (8-55); AST (SGOT) 11 U/L (5-34); Albumin 4.1 g/dL (3.4-4.8); Alkaline Phosphatase 83 U/L (40-110); Anion Gap 17 mmol/L (10-20); BUN (Urea Nitrogen) 27 mg/dL (8.4-25.7); Bilirubin, Total 0.5 mg/dL (0.2-1.2); Calc. Creatinine Clearance 69 mL/min (70-130); Calcium 9.4 mg/dL (7.8-10.44); Carbon Dioxide 20 mmol/L (23-31); Chloride 96 mmol/L (98-107); Globulin 3.5 g/dL (2.4-3.5); Glucose 357 mg/dL (80-115); Potassium 4.1 mmol/L (3.5-5.1); Protein, Total 7.6 g/dL (5.8-8.1); Sodium 129 mmol/L (136-145)
[2021-09-02] MEDS: Aspirin 81 mg Enteric Coated Tablet PO SCH (08:45)
[2021-09-02] MEDS: Enoxaparin Sodium 40 MG/0.4 ML SYRINGE SC SCH (08:45)
[2021-09-02] MEDS: Gabapentin 300 MG CAP PO SCH ×3 (08:46→20:24)
[2021-09-02] MEDS: Doxycycline 100 MG CAP PO SCH ×2 (08:46→20:24)
[2021-09-02] MEDS: predniSONE 20 MG TAB PO SCH (08:48)
[2021-09-02] MEDS: Loratadine 10 MG TAB PO SCH (08:48)
[2021-09-02] MEDS: Citalopram 20 MG TAB PO SCH (08:49)
[2021-09-02] MEDS ORDERED: Metoclopramide 10 MG/10 ML UDCUP PO SCH (09:00)
[2021-09-02] MEDS ORDERED: Citalopram 20 MG TAB PO SCH (09:00)
[2021-09-02] MEDS ORDERED: Non-Formulary Item 1 EACH (Tiotropium [Spiriva Handihaler] 18 MCG Box) INH SCH (09:00)
[2021-09-02] MEDS ORDERED: diphenhydrAMINE 25 MG CAP PO SCH (09:15)
[2021-09-02] MEDS: Acetaminophen 325 MG TAB PO PRN (09:59)
[2021-09-02] MEDS: Mometasone 200 MCG/Formoterol 5 MCG 120 PUFF INHALER INH SCH ×2 (19:13→19:30)
[2021-09-02] MEDS: Mirtazapine 30 MG TAB PO SCH (20:25)
[2021-09-02] MEDS ORDERED: Lantus 1000 UNITS/10 ML VIAL SC SCH (21:00)
[2021-09-03] MEDS: HumaLOG 300 UNITS/3 ML VIAL SC PRN ×2 (05:27→11:32)
[2021-09-03] MEDS: Mometasone 200 MCG/Formoterol 5 MCG 120 PUFF INHALER INH SCH (07:44)
[2021-09-03 08:37] LABS: #Basophils 0.1 thou/uL (0.0-0.2); #Eosinphils 0.2 thou/uL (0.0-0.7); #Lymphocytes 3.9 thou/uL (1.20-3.40); #Monocytes 0.8 thou/uL (0.11-0.59); #Neutrophils 6.3 thou/uL (1.40-6.50); %Basophils 0.9 % (0.0-1.0); %Eosinophils 1.5 % (0.0-10.0); %Monocytes 6.8 % (0.0-10.0); %Neutrophils 55.8 % (42.0-75.0); Hemoglobin 15.9 g/dL (14.0-18.0); Mean Corpuscular HGB CONC 31.9 g/dL (32.0-36.0); Mean Corpuscular Hemoglobin 26.5 pg (27.0-31.0); Mean Corpuscular Volume 82.9 fL (78.0-98.0); Mean Platelet Volume 9.5 fL (7.4-10.4); Platelet Count 182 thou/uL (130-400); RBC Distribution Width 13.7 % (11.5-14.5); Red Blood Cell (RBC) Count 6.03 mill/uL (4.70-6.10); White Blood Cell (WBC) Count 11.2 thou/uL (4.8-10.8)
[2021-09-03] MEDS: Citalopram 20 MG TAB PO SCH (08:59)
[2021-09-03] MEDS: Enoxaparin Sodium 40 MG/0.4 ML SYRINGE SC SCH (08:59)
[2021-09-03] MEDS: predniSONE 20 MG TAB PO SCH (08:59)
[2021-09-03] MEDS: Aspirin 81 mg Enteric Coated Tablet PO SCH (08:59)
[2021-09-03] MEDS: Doxycycline 100 MG CAP PO SCH (08:59)
[2021-09-03] MEDS ORDERED: Lantus 1000 UNITS/10 ML VIAL SC SCH (09:00)
[2021-09-03] MEDS: Loratadine 10 MG TAB PO SCH (09:00)
[2021-09-03] MEDS: Gabapentin 300 MG CAP PO SCH (09:00)
[2021-09-03 09:04] LABS: ALT (SGPT) 13 U/L (8-55); AST (SGOT) 13 U/L (5-34); Albumin 4.1 g/dL (3.4-4.8); Alkaline Phosphatase 74 U/L (40-110); Anion Gap 15 mmol/L (10-20); BUN (Urea Nitrogen) 21 mg/dL (8.4-25.7); Bilirubin, Total 0.5 mg/dL (0.2-1.2); Calc. Creatinine Clearance 74 mL/min (70-130); Calcium 9.8 mg/dL (7.8-10.44); Carbon Dioxide 25 mmol/L (23-31); Chloride 100 mmol/L (98-107); Globulin 3.5 g/dL (2.4-3.5); Glucose 194 mg/dL (80-115); Potassium 3.5 mmol/L (3.5-5.1); Protein, Total 7.6 g/dL (5.8-8.1); Sodium 136 mmol/L (136-145)
[2021-09-03 12:40] VITALS: BP 111/71; TEMP 97.8
== END 2021-09-03 14:00 | disposition home or self-care (01) | DRG 189 ==
LOC: SURG B 07:14 → OBSVTOIN 10:43
PROVIDERS: ADMIT Family Medicine; ATTEND Family Medicine
DX: J96.01 Acute respiratory failure with hypoxia (principal); J44.1 Chronic obstructive pulmonary disease with (acute) exacerbation; I50.32 Chronic diastolic (congestive) heart failure; Z77.22 Contact with and (suspected) exposure to environmental tobacco smoke (acute) (chronic); E11.9 Type 2 diabetes mellitus without complications; E78.5 Hyperlipidemia, unspecified; I25.10 Atherosclerotic heart disease of native coronary artery without angina pectoris; F41.9 Anxiety disorder, unspecified; I11.0 Hypertensive heart disease with heart failure; K21.9 Gastro-esophageal reflux disease without esophagitis; Z83.6 Family history of other diseases of the respiratory system; Z83.3 Family history of diabetes mellitus; Z82.49 Family history of ischemic heart disease and other diseases of the circulatory system; Z80.1 Family history of malignant neoplasm of trachea, bronchus and lung; Z95.0 Presence of cardiac pacemaker; Z88.2 Allergy status to sulfonamides; Z79.82 Long term (current) use of aspirin; Z79.4 Long term (current) use of insulin; Z79.51 Long term (current) use of inhaled steroids; Z79.899 Other long term (current) drug therapy; Z90.49 Acquired absence of other specified parts of digestive tract
CPT/HCPCS: 36415; 36416; 80053; 83930; 83935; 84145; 84300; 85025; 87633; 94640; J1650; J1815; J7512; J7620

== ENCOUNTER 2021-09-09 19:27 | Inpatient (IN) | payer MEDICARE, BC ==
[2021-09-09] MEDS ORDERED: methylPREDNISolone Sod Succ/PF 125 MG/2 ML VIAL ONE (20:38)
[2021-09-09] MEDS ORDERED: Morphine 4 MG/ML VIAL ONE (20:38)
[2021-09-09 21:01] LABS: Hemoglobin 13.4 g/dL (14.0-18.0); Mean Corpuscular HGB CONC 32.2 g/dL (32.0-36.0); Mean Corpuscular Hemoglobin 27.2 pg (27.0-31.0); Mean Corpuscular Volume 84.4 fL (78.0-98.0); Mean Platelet Volume 9.5 fL (7.4-10.4); Platelet Count 186 thou/uL (130-400); Red Blood Cell (RBC) Count 4.93 mill/uL (4.70-6.10); White Blood Cell (WBC) Count 16.6 thou/uL (4.8-10.8)
[2021-09-09 21:17] LABS: ALT (SGPT) 59 U/L (8-55); AST (SGOT) 39 U/L (5-34); Albumin 3.4 g/dL (3.4-4.8); Alkaline Phosphatase 150 U/L (40-110); Anion Gap 19 mmol/L (10-20); BUN (Urea Nitrogen) 12 mg/dL (8.4-25.7); Calc. Creatinine Clearance 0 mL/min (70-130); Calcium 8.7 mg/dL (7.8-10.44); Carbon Dioxide 20 mmol/L (23-31); Chloride 103 mmol/L (98-107); Globulin 2.7 g/dL (2.4-3.5); Glucose 391 mg/dL (80-115); Potassium 3.6 mmol/L (3.5-5.1); Protein, Total 6.1 g/dL (5.8-8.1); Sodium 138 mmol/L (136-145)
[2021-09-09 21:29] LABS: Band 8 % (5-11); Hypochromia SLIGHT = 6-15 cells (100X) (0-5/hpf); Lymphocytes 11 % (21-51); MDiff Complete? YES; Monocytes 2 % (0-10); Neutrophil 79 % (42-75); Platelet Morphology Comment Appears Adequate
[2021-09-09 21:40] LABS: CKMB 0.4 ng/mL (0-6.6)
[2021-09-09] MEDS ORDERED: Cefepime 2 GM VIAL ONE ×2 (21:41→21:43)
[2021-09-09] MEDS ORDERED: Dextrose 50% Abboject 50 ML SYRINGE SLOW IVP PRN (22:08)
[2021-09-09] MEDS ORDERED: Dextrose 5% in Water 1,000 ML IV PRN (22:08)
[2021-09-09] MEDS ORDERED: Ondansetron PF 4 MG/2 ML Vial IVP PRN (22:08)
[2021-09-09] MEDS ORDERED: Ondansetron ODT 4 MG TAB PO PRN (22:08)
[2021-09-09] MEDS ORDERED: HumaLOG 300 UNITS/3 ML VIAL SC PRN ×2 (22:17)
[2021-09-09] MEDS ORDERED: Albuterol 200 PUFF (6.7GM INHALER) ONE (22:59)
[2021-09-09] MEDS ORDERED: Lactated Ringer's 500 ML IV SCH (23:00)
[2021-09-10] MEDS ORDERED: VANCOMYCIN 2 GRAM/400 ML BAG 2 GM in Premix Bag 1 BAG IVPB SCH (01:00)
[2021-09-10 01:23] LABS: SARS-CoV-2 NAA Rapid Test Not Detected (NotDetected)
[2021-09-10] MEDS ORDERED: Vancomycin 1 GM/200 ML BAG ONE (01:56)
[2021-09-10 03:23] LABS: Hemoglobin 14.3 g/dL (14.0-18.0); Mean Corpuscular HGB CONC 32.2 g/dL (32.0-36.0); Mean Corpuscular Hemoglobin 27.1 pg (27.0-31.0); Mean Corpuscular Volume 84.3 fL (78.0-98.0); Mean Platelet Volume 9.5 fL (7.4-10.4); Platelet Count 207 thou/uL (130-400); RBC Distribution Width 14.1 % (11.5-14.5); Red Blood Cell (RBC) Count 5.29 mill/uL (4.70-6.10); White Blood Cell (WBC) Count 18.3 thou/uL (4.8-10.8)
[2021-09-10 03:24] LABS: Band 12 % (5-11); Lymphocytes 12 % (21-51); MDiff Complete? YES; Monocytes 14 % (0-10); Neutrophil 62 % (42-75); Platelet Morphology Comment Appears Adequate; RBC Morphology Normal
[2021-09-10 03:29] VITALS: BMI 32.2
[2021-09-10 03:30] LABS: Troponin I 0.032 ng/mL (< 0.028)
[2021-09-10 03:38] LABS: ALT (SGPT) 58 U/L (8-55); AST (SGOT) 33 U/L (5-34); Albumin 3.5 g/dL (3.4-4.8); Alkaline Phosphatase 156 U/L (40-110); Anion Gap 24 mmol/L (10-20); BUN (Urea Nitrogen) 13 mg/dL (8.4-25.7); Bilirubin, Total 0.9 mg/dL (0.2-1.2); Calc. Creatinine Clearance 88 mL/min (70-130); Calcium 9.8 mg/dL (7.8-10.44); Carbon Dioxide 15 mmol/L (23-31); Chloride 102 mmol/L (98-107); Glucose 369 mg/dL (80-115); Potassium 3.9 mmol/L (3.5-5.1); Protein, Total 7.5 g/dL (5.8-8.1); Sodium 137 mmol/L (136-145)
[2021-09-10] MEDS ORDERED: Nitroglycerin 0.4 MG TAB (25 Tab Bottle) SL PRN (03:59)
[2021-09-10] MEDS ORDERED: hydrOXYzine 25 MG TAB PO PRN (03:59)
[2021-09-10] MEDS ORDERED: Albuterol Sulfate 2.5 mg/3 ml Neb NEB PRN (04:11)
[2021-09-10] MEDS ORDERED: Evolocumab [Repatha Sureclick] 140 MG/ML Pen.Injctr SC SCH (04:15)
[2021-09-10] MEDS: Lactated Ringer's 1,000 ML IV SCH ×2 (04:23→15:27)
[2021-09-10 05:19] LABS: Actual Bicarbonate (HCO3a) 14.6 mEq/L (22-28); Base Excess (BEa) -8.4 mEq/L (-2.0 to +3.0); Carboxyhemoglobin (COHb) 0.8 gm% (0.0-3.0); Hemoglobin (Hb) 13.7 g/dL (14.0-18.0); O2 Tension (PaO2), arterial 88.3 mmHg (> 80.0); Potassium - ABG Lab 3.38 mmol/L (3.70-5.30); pH, Arterial 7.39 (7.35-7.45)
[2021-09-10 05:20] LABS: CO2 Tension 24.6 mmHg (35.0-45.0); Puncture Site RRA
[2021-09-10] MEDS ORDERED: HumaLOG 300 UNITS/3 ML VIAL SC SCH ×3 (05:45→14:15)
[2021-09-10 05:56] LABS: Lactic Acid 2.2 mmol/L (0.5-2.2)
[2021-09-10 06:04] LABS: Troponin I 0.027 ng/mL (< 0.028)
[2021-09-10] MEDS ORDERED: Lactated Ringer's 500 ML IV SCH (06:15)
[2021-09-10] MEDS: Cefepime 2 GM in Sodium Chloride 0.9% 100 ML IVPB SCH ×3 (06:36→22:55)
[2021-09-10] MEDS ORDERED: Lantus 1000 UNITS/10 ML VIAL SC SCH ×3 (07:00→21:00)
[2021-09-10] MEDS: Mometasone 200 MCG/Formoterol 5 MCG 120 PUFF INHALER INH SCH ×2 (07:11→19:04)
[2021-09-10] MEDS ORDERED: Potassium Chloride 20 MEQ TAB PO SCH ×2 (07:15→18:30)
[2021-09-10 07:29] LABS: Amphetamine Not Detected (NotDetected); Barbiturates Screen Not Detected (NotDetected); Benzodiazepine Screen Not Detected (NotDetected); Cocaine Metabolite Screen Not Detected (NotDetected); Methadone Not Detected (NotDetected); Methamphetamine Not Detected (NotDetected); Opiate Screen Detected (NotDetected); Oxycodone Screen Not Detected (NotDetected); Phencyclidine (PCP) Not Detected (NotDetected); THC/Cannabinoid Screen Not Detected (NotDetected); Tricyclic Screen Not Detected (NotDetected)
[2021-09-10 07:37] LABS: Legionella Urinary Ag Negative (Negative)
[2021-09-10 07:38] LABS: Strep pneumo Urine Ag NEGATIVE (NEGATIVE)
[2021-09-10] MEDS: Aspirin 81 mg Enteric Coated Tablet PO SCH (08:15)
[2021-09-10] MEDS: Enoxaparin Sodium 40 MG/0.4 ML SYRINGE SC SCH (08:15)
[2021-09-10] MEDS: Gabapentin 300 MG CAP PO SCH ×3 (08:16→20:34)
[2021-09-10] MEDS: Citalopram 20 MG TAB PO SCH (08:18)
[2021-09-10] MEDS: Loratadine 10 MG TAB PO SCH (08:18)
[2021-09-10] MEDS ORDERED: Non-Formulary Item 1 EACH (Tiotropium [Spiriva Handihaler] 18 MCG Box) INH SCH (09:00)
[2021-09-10] MEDS ORDERED: Semaglutide [Ozempic] 1 MG/0.75 ML Pen.Injctr SC SCH (09:00)
[2021-09-10 09:19] LABS: Anion Gap 24 mmol/L (10-20); BUN (Urea Nitrogen) 14 mg/dL (8.4-25.7); Calc. Creatinine Clearance 97 mL/min (70-130); Calcium 9.3 mg/dL (7.8-10.44); Carbon Dioxide 13 mmol/L (23-31); Chloride 102 mmol/L (98-107); Glucose 307 mg/dL (80-115); Potassium 3.4 mmol/L (3.5-5.1); Sodium 136 mmol/L (136-145)
[2021-09-10] MEDS ORDERED: Insulin Regular 300 UNITS/3 ML VIAL IVP SCH (10:00)
[2021-09-10] MEDS: VANCOMYCIN 1.25 GM/250 ML BAG 1.25 GM in Premix Bag 1 BAG IVPB SCH (12:25)
[2021-09-10 13:57] LABS: Anion Gap 19 mmol/L (10-20); BUN (Urea Nitrogen) 18 mg/dL (8.4-25.7); Calc. Creatinine Clearance 97 mL/min (70-130); Calcium 8.9 mg/dL (7.8-10.44); Carbon Dioxide 15 mmol/L (23-31); Chloride 104 mmol/L (98-107); Glucose 358 mg/dL (80-115); Potassium 3.5 mmol/L (3.5-5.1); Sodium 134 mmol/L (136-145)
[2021-09-10 18:03] LABS: Anion Gap 16 mmol/L (10-20); BUN (Urea Nitrogen) 19 mg/dL (8.4-25.7); Calc. Creatinine Clearance 110 mL/min (70-130); Calcium 9.2 mg/dL (7.8-10.44); Carbon Dioxide 16 mmol/L (23-31); Chloride 105 mmol/L (98-107); Glucose 152 mg/dL (80-115); Potassium 3.2 mmol/L (3.5-5.1); Sodium 134 mmol/L (136-145)
[2021-09-10] MEDS: Mirtazapine 30 MG TAB PO SCH (20:33)
[2021-09-10] MEDS: Melatonin 3 MG TAB PO SCH (20:34)
[2021-09-10] MEDS: Guaifenesin DM 100-10/5 ML UDCUP PO PRN (20:39)
[2021-09-10 23:54] LABS: Anion Gap 17 mmol/L (10-20); BUN (Urea Nitrogen) 20 mg/dL (8.4-25.7); Calc. Creatinine Clearance 102 mL/min (70-130); Carbon Dioxide 16 mmol/L (23-31); Chloride 106 mmol/L (98-107); Glucose 271 mg/dL (80-115); Potassium 3.8 mmol/L (3.5-5.1); Sodium 135 mmol/L (136-145)
[2021-09-11] MEDS ORDERED: HumaLOG 300 UNITS/3 ML VIAL SC SCH ×3 (00:30→12:00)
[2021-09-11] MEDS: VANCOMYCIN 1.25 GM/250 ML BAG 1.25 GM in Premix Bag 1 BAG IVPB SCH (00:52)
[2021-09-11 03:14] LABS: ALT (SGPT) 32 U/L (8-55); AST (SGOT) 17 U/L (5-34); Albumin 2.8 g/dL (3.4-4.8); Alkaline Phosphatase 115 U/L (40-110); Anion Gap 13 mmol/L (10-20); BUN (Urea Nitrogen) 21 mg/dL (8.4-25.7); Bilirubin, Total 0.5 mg/dL (0.2-1.2); Calc. Creatinine Clearance 110 mL/min (70-130); Calcium 8.8 mg/dL (7.8-10.44); Carbon Dioxide 18 mmol/L (23-31); Chloride 108 mmol/L (98-107); Globulin 3.2 g/dL (2.4-3.5); Glucose 254 mg/dL (80-115); Potassium 4.1 mmol/L (3.5-5.1); Sodium 135 mmol/L (136-145)
[2021-09-11 03:21] LABS: Band 19 % (5-11); Hemoglobin 12.2 g/dL (14.0-18.0); Large Platelets SLIGHT; Lymphocytes 5 % (21-51); MDiff Complete? YES; Mean Corpuscular HGB CONC 32.9 g/dL (32.0-36.0); Mean Corpuscular Hemoglobin 27.9 pg (27.0-31.0); Mean Corpuscular Volume 84.7 fL (78.0-98.0); Mean Platelet Volume 9.1 fL (7.4-10.4); Monocytes 2 % (0-10); Myelocyte 1 % (0-0); Neutrophil 73 % (42-75); Platelet Count 202 thou/uL (130-400); Platelet Morphology Comment Appears Adequate; RBC Distribution Width 14.2 % (11.5-14.5); RBC Morphology Normal; Red Blood Cell (RBC) Count 4.38 mill/uL (4.70-6.10)
[2021-09-11] MEDS: Guaifenesin DM 100-10/5 ML UDCUP PO PRN (04:00)
[2021-09-11] MEDS: Acetaminophen 325 MG TAB PO PRN ×2 (04:01→14:47)
[2021-09-11] MEDS: Cefepime 2 GM in Sodium Chloride 0.9% 100 ML IVPB SCH ×3 (05:54→21:52)
[2021-09-11] MEDS: Mometasone 200 MCG/Formoterol 5 MCG 120 PUFF INHALER INH SCH ×2 (07:16→19:25)
[2021-09-11] MEDS: Lactated Ringer's 1,000 ML IV SCH (07:59)
[2021-09-11] MEDS: Enoxaparin Sodium 40 MG/0.4 ML SYRINGE SC SCH (08:00)
[2021-09-11] MEDS: Aspirin 81 mg Enteric Coated Tablet PO SCH (08:00)
[2021-09-11] MEDS: Gabapentin 300 MG CAP PO SCH ×3 (08:01→21:50)
[2021-09-11] MEDS: Citalopram 20 MG TAB PO SCH (08:01)
[2021-09-11] MEDS: Loratadine 10 MG TAB PO SCH (08:01)
[2021-09-11] MEDS ORDERED: Cepastat Lozenges 1 LOZ PO PRN (08:53)
[2021-09-11] MEDS ORDERED: Cepastat Lozenges 1 LOZ PO SCH (09:00)
[2021-09-11] MEDS ORDERED: Lantus 1000 UNITS/10 ML VIAL SC SCH ×2 (09:00→21:00)
[2021-09-11 10:59] LABS: SARS-CoV-2 PCR by NAA Not Detected (NotDetected)
[2021-09-11] MEDS ORDERED: guaiFENesin ER 600 MG TAB PO SCH (11:15)
[2021-09-11 12:23] LABS: Vancomycin, Trough 11.6 ug/mL
[2021-09-11 12:34] LABS: Anion Gap 17 mmol/L (10-20); BUN (Urea Nitrogen) 20 mg/dL (8.4-25.7); Calc. Creatinine Clearance 119 mL/min (70-130); Calcium 8.5 mg/dL (7.8-10.44); Carbon Dioxide 17 mmol/L (23-31); Chloride 110 mmol/L (98-107); Glucose 134 mg/dL (80-115); Potassium 3.5 mmol/L (3.5-5.1); Sodium 140 mmol/L (136-145)
[2021-09-11] MEDS ORDERED: Vancomycin 1.5 GRAM/300 ML BAG 1.5 GM in Premix Bag 1 BAG IVPB SCH (13:00)
[2021-09-11] MEDS: VANCOMYCIN 1.75 GM/350 ML BAG 1.75 GM in Premix Bag 1 BAG IVPB SCH (13:35)
[2021-09-11] MEDS ORDERED: Potassium Chloride 20 MEQ TAB PO SCH (17:00)
[2021-09-11] MEDS: Benzonatate 100 MG CAP PO PRN (17:09)
[2021-09-11] MEDS ORDERED: Naproxen 500 MG TAB PO SCH (17:45)
[2021-09-11] MEDS: guaiFENesin ER 600 MG TAB PO SCH (21:50)
[2021-09-11] MEDS: Melatonin 3 MG TAB PO SCH (21:50)
[2021-09-11] MEDS: Mirtazapine 30 MG TAB PO SCH (21:51)
[2021-09-12] MEDS: VANCOMYCIN 1.75 GM/350 ML BAG 1.75 GM in Premix Bag 1 BAG IVPB SCH ×2 (00:55→12:49)
[2021-09-12] MEDS: Cefepime 2 GM in Sodium Chloride 0.9% 100 ML IVPB SCH ×3 (05:44→21:24)
[2021-09-12 06:49] LABS: Band 2 % (5-11); Hemoglobin 12.5 g/dL (14.0-18.0); Hypochromia SLIGHT = 6-15 cells (100X) (0-5/hpf); Lymphocytes 7 % (21-51); MDiff Complete? YES; Mean Corpuscular HGB CONC 30.8 g/dL (32.0-36.0); Mean Corpuscular Hemoglobin 26.2 pg (27.0-31.0); Mean Platelet Volume 8.8 fL (7.4-10.4); Monocytes 14 % (0-10); Neutrophil 76 % (42-75); Platelet Count 226 thou/uL (130-400); Platelet Morphology Comment Appears Adequate; RBC Distribution Width 14.3 % (11.5-14.5); Reactive Lymphocytes 1 % (0-10); Red Blood Cell (RBC) Count 4.75 mill/uL (4.70-6.10); White Blood Cell (WBC) Count 14.9 thou/uL (4.8-10.8)
[2021-09-12 06:52] LABS: ALT (SGPT) 84 U/L (8-55); AST (SGOT) 73 U/L (5-34); Albumin 2.7 g/dL (3.4-4.8); Alkaline Phosphatase 125 U/L (40-110); Anion Gap 11 mmol/L (10-20); BUN (Urea Nitrogen) 15 mg/dL (8.4-25.7); Bilirubin, Total 0.5 mg/dL (0.2-1.2); Calc. Creatinine Clearance 102 mL/min (70-130); Calcium 8.6 mg/dL (7.8-10.44); Carbon Dioxide 20 mmol/L (23-31); Chloride 107 mmol/L (98-107); Globulin 3.1 g/dL (2.4-3.5); Glucose 288 mg/dL (80-115); Potassium 3.4 mmol/L (3.5-5.1); Protein, Total 5.8 g/dL (5.8-8.1); Sodium 135 mmol/L (136-145)
[2021-09-12] MEDS: Mometasone 200 MCG/Formoterol 5 MCG 120 PUFF INHALER INH SCH ×2 (07:27→19:15)
[2021-09-12] MEDS: Enoxaparin Sodium 40 MG/0.4 ML SYRINGE SC SCH (08:33)
[2021-09-12] MEDS: Aspirin 81 mg Enteric Coated Tablet PO SCH (08:34)
[2021-09-12] MEDS: Gabapentin 300 MG CAP PO SCH ×3 (08:34→21:18)
[2021-09-12] MEDS: Loratadine 10 MG TAB PO SCH (08:34)
[2021-09-12] MEDS: guaiFENesin ER 600 MG TAB PO SCH ×2 (08:35→21:18)
[2021-09-12] MEDS: Citalopram 20 MG TAB PO SCH (08:35)
[2021-09-12] MEDS ORDERED: Lantus 1000 UNITS/10 ML VIAL SC SCH ×2 (09:00)
[2021-09-12] MEDS: Acetaminophen 325 MG TAB PO PRN ×3 (09:09→21:18)
[2021-09-12] MEDS: Benzonatate 100 MG CAP PO PRN ×2 (09:09→18:40)
[2021-09-12] MEDS ORDERED: Potassium Chloride 20 MEQ TAB PO SCH (14:15)
[2021-09-12] MEDS: HumaLOG 300 UNITS/3 ML VIAL SC SCH ×3 (14:26→18:32)
[2021-09-12] MEDS: Mirtazapine 30 MG TAB PO SCH (21:17)
[2021-09-12] MEDS: Melatonin 3 MG TAB PO SCH (21:17)
[2021-09-12] MEDS: Lantus 1000 UNITS/10 ML VIAL SC SCH (21:17)
[2021-09-13 01:07] LABS: Vancomycin, Trough 17.4 ug/mL
[2021-09-13] MEDS: VANCOMYCIN 1.75 GM/350 ML BAG 1.75 GM in Premix Bag 1 BAG IVPB SCH ×2 (01:58→14:01)
[2021-09-13] MEDS: Cefepime 2 GM in Sodium Chloride 0.9% 100 ML IVPB SCH ×3 (05:57→21:38)
[2021-09-13 06:31] LABS: ALT (SGPT) 70 U/L (8-55); AST (SGOT) 40 U/L (5-34); Albumin 2.8 g/dL (3.4-4.8); Alkaline Phosphatase 122 U/L (40-110); Anion Gap 12 mmol/L (10-20); BUN (Urea Nitrogen) 8 mg/dL (8.4-25.7); Bilirubin, Total 0.8 mg/dL (0.2-1.2); Calc. Creatinine Clearance 108 mL/min (70-130); Calcium 8.6 mg/dL (7.8-10.44); Carbon Dioxide 22 mmol/L (23-31); Chloride 106 mmol/L (98-107); Globulin 3.5 g/dL (2.4-3.5); Glucose 75 mg/dL (80-115); Potassium 3.2 mmol/L (3.5-5.1); Protein, Total 6.3 g/dL (5.8-8.1); Sodium 137 mmol/L (136-145)
[2021-09-13 06:32] LABS: Hemoglobin 13.4 g/dL (14.0-18.0); Mean Corpuscular HGB CONC 32.1 g/dL (32.0-36.0); Mean Corpuscular Hemoglobin 27.5 pg (27.0-31.0); Mean Corpuscular Volume 85.7 fL (78.0-98.0); Mean Platelet Volume 8.4 fL (7.4-10.4); Platelet Count 258 thou/uL (130-400); RBC Distribution Width 14.3 % (11.5-14.5); Red Blood Cell (RBC) Count 4.86 mill/uL (4.70-6.10); White Blood Cell (WBC) Count 24.1 thou/uL (4.8-10.8)
[2021-09-13] MEDS: Mometasone 200 MCG/Formoterol 5 MCG 120 PUFF INHALER INH SCH ×2 (06:59→19:21)
[2021-09-13 08:03] LABS: Band 21 % (5-11); Eosinophils 2 % (0-10); Lymphocytes 8 % (21-51); MDiff Complete? YES; Metamyelocyte 2 % (0-0); Monocytes 5 % (0-10); Myelocyte 2 % (0-0); Neutrophil 60 % (42-75); Platelet Morphology Comment Appears Adequate; Polychromasia SLIGHT = 2-3 cells (100X) (0-2/hpf)
[2021-09-13] MEDS: Loratadine 10 MG TAB PO SCH (09:43)
[2021-09-13] MEDS: guaiFENesin ER 600 MG TAB PO SCH ×2 (09:43→21:36)
[2021-09-13] MEDS: Citalopram 20 MG TAB PO SCH (09:43)
[2021-09-13] MEDS: Gabapentin 300 MG CAP PO SCH ×3 (09:43→22:14)
[2021-09-13] MEDS: Aspirin 81 mg Enteric Coated Tablet PO SCH (09:43)
[2021-09-13] MEDS: Acetaminophen 325 MG TAB PO PRN ×2 (09:44→17:00)
[2021-09-13] MEDS: HumaLOG 300 UNITS/3 ML VIAL SC SCH ×3 (09:44→18:11)
[2021-09-13] MEDS: Lantus 1000 UNITS/10 ML VIAL SC SCH ×2 (09:45→21:37)
[2021-09-13] MEDS: Enoxaparin Sodium 40 MG/0.4 ML SYRINGE SC SCH (09:47)
[2021-09-13] MEDS ORDERED: Potassium Chloride 20 MEQ TAB PO SCH (10:45)
[2021-09-13] MEDS: Mirtazapine 30 MG TAB PO SCH (21:36)
[2021-09-13] MEDS: Melatonin 3 MG TAB PO SCH (21:37)
[2021-09-14] MEDS: VANCOMYCIN 1.75 GM/350 ML BAG 1.75 GM in Premix Bag 1 BAG IVPB SCH ×2 (01:18→12:58)
[2021-09-14] MEDS: Cefepime 2 GM in Sodium Chloride 0.9% 100 ML IVPB SCH ×3 (06:08→21:40)
[2021-09-14] MEDS: Mometasone 200 MCG/Formoterol 5 MCG 120 PUFF INHALER INH SCH ×2 (08:17→20:14)
[2021-09-14 08:28] LABS: Anion Gap 13 mmol/L (10-20); BUN (Urea Nitrogen) 6 mg/dL (8.4-25.7); Calc. Creatinine Clearance 130 mL/min (70-130); Calcium 8.4 mg/dL (7.8-10.44); Carbon Dioxide 21 mmol/L (23-31); Chloride 105 mmol/L (98-107); Glucose 70 mg/dL (80-115); Sodium 136 mmol/L (136-145)
[2021-09-14 08:42] LABS: Hemoglobin 12.8 g/dL (14.0-18.0); Mean Corpuscular HGB CONC 32.8 g/dL (32.0-36.0); Mean Corpuscular Hemoglobin 27.7 pg (27.0-31.0); Mean Corpuscular Volume 84.5 fL (78.0-98.0); Platelet Count 299 thou/uL (130-400); RBC Distribution Width 14.2 % (11.5-14.5); Red Blood Cell (RBC) Count 4.62 mill/uL (4.70-6.10); White Blood Cell (WBC) Count 31.2 thou/uL (4.8-10.8)
[2021-09-14] MEDS: HumaLOG 300 UNITS/3 ML VIAL SC SCH ×3 (09:08→18:23)
[2021-09-14 09:26] LABS: MDiff Complete? YES
[2021-09-14 09:27] LABS: Band 5 % (5-11); Hypersemented Neutrophil SLIGHT; Lymphocytes 11 % (21-51); Monocytes 1 % (0-10); Neutrophil 83 % (42-75); Platelet Morphology Comment Appears Adequate; RBC Morphology Normal
[2021-09-14] MEDS: Loratadine 10 MG TAB PO SCH (10:16)
[2021-09-14] MEDS: Gabapentin 300 MG CAP PO SCH ×3 (10:16→21:36)
[2021-09-14] MEDS: Citalopram 20 MG TAB PO SCH (10:16)
[2021-09-14] MEDS: Aspirin 81 mg Enteric Coated Tablet PO SCH (10:16)
[2021-09-14] MEDS: guaiFENesin ER 600 MG TAB PO SCH ×2 (10:16→21:36)
[2021-09-14] MEDS: Enoxaparin Sodium 40 MG/0.4 ML SYRINGE SC SCH (10:16)
[2021-09-14] MEDS: Lantus 1000 UNITS/10 ML VIAL SC SCH ×2 (10:17→21:39)
[2021-09-14] MEDS: Acetaminophen 325 MG TAB PO PRN (16:35)
[2021-09-14] MEDS: Melatonin 3 MG TAB PO SCH (21:37)
[2021-09-14] MEDS: Mirtazapine 30 MG TAB PO SCH (21:44)
[2021-09-15 00:38] LABS: Vancomycin, Trough 22.3 ug/mL
[2021-09-15] MEDS: VANCOMYCIN 1.75 GM/350 ML BAG 1.75 GM in Premix Bag 1 BAG IVPB SCH ×2 (01:06→16:21)
[2021-09-15] MEDS: Cefepime 2 GM in Sodium Chloride 0.9% 100 ML IVPB SCH ×3 (05:53→23:22)
[2021-09-15 06:27] LABS: #Eosinphils 0.1 thou/uL (0.0-0.7); #Lymphocytes 1.5 thou/uL (1.20-3.40); #Monocytes 1.3 thou/uL (0.11-0.59); #Neutrophils 17.6 thou/uL (1.40-6.50); %Basophils 0.1 % (0.0-1.0); %Eosinophils 0.6 % (0.0-10.0); %Lymphocytes 7.3 % (21.0-51.0); %Monocytes 6.1 % (0.0-10.0); %Neutrophils 85.9 % (42.0-75.0); Mean Corpuscular HGB CONC 32.2 g/dL (32.0-36.0); Mean Corpuscular Hemoglobin 27.3 pg (27.0-31.0); Mean Corpuscular Volume 84.7 fL (78.0-98.0); Mean Platelet Volume 7.6 fL (7.4-10.4); Platelet Count 315 thou/uL (130-400); RBC Distribution Width 14.1 % (11.5-14.5); Red Blood Cell (RBC) Count 4.39 mill/uL (4.70-6.10); White Blood Cell (WBC) Count 20.4 thou/uL (4.8-10.8)
[2021-09-15 06:46] LABS: ALT (SGPT) 50 U/L (8-55); AST (SGOT) 33 U/L (5-34); Albumin 2.5 g/dL (3.4-4.8); Alkaline Phosphatase 133 U/L (40-110); Anion Gap 14 mmol/L (10-20); BUN (Urea Nitrogen) 5 mg/dL (8.4-25.7); Bilirubin, Total 0.8 mg/dL (0.2-1.2); Calc. Creatinine Clearance 119 mL/min (70-130); Calcium 7.8 mg/dL (7.8-10.44); Carbon Dioxide 22 mmol/L (23-31); Chloride 106 mmol/L (98-107); Globulin 3.4 g/dL (2.4-3.5); Glucose 86 mg/dL (80-115); Potassium 3.5 mmol/L (3.5-5.1); Protein, Total 5.9 g/dL (5.8-8.1); Sodium 138 mmol/L (136-145)
[2021-09-15] MEDS: Mometasone 200 MCG/Formoterol 5 MCG 120 PUFF INHALER INH SCH ×2 (07:57→20:04)
[2021-09-15] MEDS: guaiFENesin ER 600 MG TAB PO SCH ×2 (08:57→20:59)
[2021-09-15] MEDS: Citalopram 20 MG TAB PO SCH (08:57)
[2021-09-15] MEDS: Aspirin 81 mg Enteric Coated Tablet PO SCH (08:58)
[2021-09-15] MEDS: Loratadine 10 MG TAB PO SCH (08:58)
[2021-09-15] MEDS: Gabapentin 300 MG CAP PO SCH ×3 (08:58→20:58)
[2021-09-15] MEDS: Enoxaparin Sodium 40 MG/0.4 ML SYRINGE SC SCH (08:59)
[2021-09-15] MEDS: Lantus 1000 UNITS/10 ML VIAL SC SCH ×2 (09:00→20:59)
[2021-09-15] MEDS: HumaLOG 300 UNITS/3 ML VIAL SC SCH ×3 (09:01→17:46)
[2021-09-15] MEDS: Acetaminophen 325 MG TAB PO PRN (09:04)
[2021-09-15] MEDS ORDERED: HYDROmorphone 2 MG/ML VIAL ONE (12:13)
[2021-09-15] MEDS ORDERED: Midazolam HCl 2 mg/2 ml Vial ONE (12:13)
[2021-09-15] MEDS ORDERED: Sodium Chloride 0.9% 10 ML ONE (12:13)
[2021-09-15] MEDS ORDERED: Fentanyl 100 MCG/2 ML VIAL ONE (12:13)
[2021-09-15] MEDS ORDERED: Lidocaine 1% PF 5 ML VIAL ONE ×2 (13:13→13:58)
[2021-09-15] MEDS ORDERED: PROPOFOL 200 MG/20 ML VIAL ONE (13:58)
[2021-09-15] MEDS ORDERED: PHENYLEPHRINE-NS 100 MCG/ML 10 ML SYRINGE ONE (13:58)
[2021-09-15] MEDS ORDERED: Rocuronium Bromide 10 MG/ML (10ML VIAL) ONE (13:58)
[2021-09-15] MEDS ORDERED: Dexamethasone 20 MG/5 ML VIAL ONE (13:58)
[2021-09-15] MEDS ORDERED: Ondansetron PF 4 MG/2 ML Vial ONE (13:58)
[2021-09-15] MEDS ORDERED: Succinylcholine 200 MG/10 ml SYRINGE FS ONE (13:58)
[2021-09-15] MEDS ORDERED: SUGAMMADEX SODIUM 200 MG/2 ML VIAL ONE (14:37)
[2021-09-15] MEDS ORDERED: EPINEPHrine 1 MG/ML AMP ONE (14:42)
[2021-09-15] MEDS ORDERED: Bupivacaine PF 0.5% 30 ML VIAL ONE (14:42)
[2021-09-15] MEDS ORDERED: HYDROmorphone 2 MG/ML VIAL SLOW IVP PRN (15:13)
[2021-09-15] MEDS ORDERED: Promethazine HCl 25 MG/ML VIAL IM PRN (15:13)
[2021-09-15] MEDS ORDERED: Promethazine HCl 25 MG/ML VIAL IVPB PRN (15:13)
[2021-09-15] MEDS ORDERED: Ondansetron HCl/PF 4 MG/2 ML Vial IVP PRN (15:13)
[2021-09-15] MEDS ORDERED: traMADol HCl 50 MG TAB PO PRN ×2 (16:13)
[2021-09-15] MEDS: Fentanyl 100 MCG/2 ML VIAL SLOW IVP PRN (16:40)
[2021-09-15] MEDS: Ketorolac Tromethamine 30 MG/ML VIAL IVP SCH ×2 (18:38→23:22)
[2021-09-15] MEDS: Mirtazapine 30 MG TAB PO SCH (20:57)
[2021-09-15] MEDS: Melatonin 3 MG TAB PO SCH (20:59)
[2021-09-16] MEDS: VANCOMYCIN 1.75 GM/350 ML BAG 1.75 GM in Premix Bag 1 BAG IVPB SCH ×2 (00:05→12:41)
[2021-09-16 00:34] LABS: Vancomycin, Trough 18.9 ug/mL
[2021-09-16] MEDS: Ketorolac Tromethamine 30 MG/ML VIAL IVP SCH ×4 (05:53→23:28)
[2021-09-16] MEDS: Cefepime 2 GM in Sodium Chloride 0.9% 100 ML IVPB SCH ×3 (05:53→20:34)
[2021-09-16 06:26] LABS: #Monocytes 0.5 thou/uL (0.11-0.59); #Neutrophils 12.7 thou/uL (1.40-6.50); %Basophils 0.1 % (0.0-1.0); %Eosinophils 0.2 % (0.0-10.0); %Monocytes 3.5 % (0.0-10.0); %Neutrophils 89.2 % (42.0-75.0); Hemoglobin 11.8 g/dL (14.0-18.0); Mean Corpuscular HGB CONC 31.5 g/dL (32.0-36.0); Mean Corpuscular Hemoglobin 27.3 pg (27.0-31.0); Mean Corpuscular Volume 86.5 fL (78.0-98.0); Mean Platelet Volume 8.2 fL (7.4-10.4); Platelet Count 303 thou/uL (130-400); RBC Distribution Width 14.2 % (11.5-14.5); Red Blood Cell (RBC) Count 4.32 mill/uL (4.70-6.10); White Blood Cell (WBC) Count 14.3 thou/uL (4.8-10.8)
[2021-09-16 06:47] LABS: ALT (SGPT) 47 U/L (8-55); AST (SGOT) 30 U/L (5-34); Albumin 2.5 g/dL (3.4-4.8); Alkaline Phosphatase 137 U/L (40-110); Anion Gap 15 mmol/L (10-20); BUN (Urea Nitrogen) 14 mg/dL (8.4-25.7); Bilirubin, Total 0.5 mg/dL (0.2-1.2); Calc. Creatinine Clearance 98 mL/min (70-130); Calcium 8.2 mg/dL (7.8-10.44); Carbon Dioxide 22 mmol/L (23-31); Chloride 103 mmol/L (98-107); Globulin 4.5 g/dL (2.4-3.5); Glucose 318 mg/dL (80-115); Potassium 4.5 mmol/L (3.5-5.1); Sodium 135 mmol/L (136-145)
[2021-09-16] MEDS: Enoxaparin Sodium 40 MG/0.4 ML SYRINGE SC SCH (08:48)
[2021-09-16] MEDS: Gabapentin 300 MG CAP PO SCH ×3 (08:48→20:33)
[2021-09-16] MEDS: Lantus 1000 UNITS/10 ML VIAL SC SCH ×2 (08:49→20:39)
[2021-09-16] MEDS: Citalopram 20 MG TAB PO SCH (08:49)
[2021-09-16] MEDS: guaiFENesin ER 600 MG TAB PO SCH ×2 (08:49→20:34)
[2021-09-16] MEDS: Loratadine 10 MG TAB PO SCH (08:49)
[2021-09-16] MEDS: HumaLOG 300 UNITS/3 ML VIAL SC SCH ×3 (08:49→17:25)
[2021-09-16] MEDS: Aspirin 81 mg Enteric Coated Tablet PO SCH (08:49)
[2021-09-16] MEDS: Mometasone 200 MCG/Formoterol 5 MCG 120 PUFF INHALER INH SCH ×2 (10:34→18:35)
[2021-09-16] MEDS: Fentanyl 100 MCG/2 ML VIAL SLOW IVP PRN ×2 (12:43→17:27)
[2021-09-16] MEDS: Mirtazapine 30 MG TAB PO SCH (20:33)
[2021-09-16] MEDS: Melatonin 3 MG TAB PO SCH (20:34)
[2021-09-16] MEDS ORDERED: HumaLOG 300 UNITS/3 ML VIAL SC SCH (23:30)
[2021-09-17] MEDS: VANCOMYCIN 1.75 GM/350 ML BAG 1.75 GM in Premix Bag 1 BAG IVPB SCH ×2 (01:17→13:02)
[2021-09-17] MEDS: Cefepime 2 GM in Sodium Chloride 0.9% 100 ML IVPB SCH ×3 (05:36→21:43)
[2021-09-17] MEDS: Ketorolac Tromethamine 30 MG/ML VIAL IVP SCH ×3 (05:37→18:07)
[2021-09-17 06:41] LABS: #Eosinphils 0.1 thou/uL (0.0-0.7); #Lymphocytes 1.9 thou/uL (1.20-3.40); #Monocytes 0.8 thou/uL (0.11-0.59); #Neutrophils 7.9 thou/uL (1.40-6.50); %Basophils 0.2 % (0.0-1.0); %Eosinophils 0.7 % (0.0-10.0); %Lymphocytes 17.9 % (21.0-51.0); %Monocytes 7.7 % (0.0-10.0); %Neutrophils 73.6 % (42.0-75.0); Hemoglobin 10.9 g/dL (14.0-18.0); Mean Corpuscular HGB CONC 31.2 g/dL (32.0-36.0); Mean Corpuscular Hemoglobin 27.2 pg (27.0-31.0); Mean Corpuscular Volume 87.1 fL (78.0-98.0); Mean Platelet Volume 7.8 fL (7.4-10.4); Platelet Count 349 thou/uL (130-400); RBC Distribution Width 14.1 % (11.5-14.5); White Blood Cell (WBC) Count 10.7 thou/uL (4.8-10.8)
[2021-09-17 07:04] LABS: ALT (SGPT) 35 U/L (8-55); AST (SGOT) 27 U/L (5-34); Albumin 2.2 g/dL (3.4-4.8); Alkaline Phosphatase 102 U/L (40-110); Anion Gap 8 mmol/L (10-20); BUN (Urea Nitrogen) 12 mg/dL (8.4-25.7); Bilirubin, Total 0.4 mg/dL (0.2-1.2); Calc. Creatinine Clearance 116 mL/min (70-130); Calcium 7.7 mg/dL (7.8-10.44); Carbon Dioxide 23 mmol/L (23-31); Chloride 110 mmol/L (98-107); Globulin 3.8 g/dL (2.4-3.5); Glucose 74 mg/dL (80-115); Potassium 3.2 mmol/L (3.5-5.1); Sodium 138 mmol/L (136-145)
[2021-09-17] MEDS: Mometasone 200 MCG/Formoterol 5 MCG 120 PUFF INHALER INH SCH ×2 (07:27→21:52)
[2021-09-17] MEDS: Gabapentin 300 MG CAP PO SCH ×3 (08:54→21:44)
[2021-09-17] MEDS: guaiFENesin ER 600 MG TAB PO SCH ×2 (08:54→21:45)
[2021-09-17] MEDS: Lantus 1000 UNITS/10 ML VIAL SC SCH ×2 (08:55→21:48)
[2021-09-17] MEDS: Loratadine 10 MG TAB PO SCH (08:55)
[2021-09-17] MEDS: Citalopram 20 MG TAB PO SCH (08:55)
[2021-09-17] MEDS: Enoxaparin Sodium 40 MG/0.4 ML SYRINGE SC SCH (08:55)
[2021-09-17] MEDS: Aspirin 81 mg Enteric Coated Tablet PO SCH (08:55)
[2021-09-17] MEDS: HumaLOG 300 UNITS/3 ML VIAL SC SCH ×3 (08:55→18:07)
[2021-09-17] MEDS ORDERED: Potassium Chloride 20 MEQ TAB PO SCH (09:00)
[2021-09-17] MEDS ORDERED: Furosemide 40 MG TAB PO SCH (09:00)
[2021-09-17] MEDS: Benzonatate 100 MG CAP PO PRN ×2 (11:59→21:46)
[2021-09-17 12:46] LABS: Vancomycin, Trough 29.5 ug/mL
[2021-09-17 18:40] LABS: SARS-CoV-2 PCR by NAA Not Detected (NotDetected)
[2021-09-17] MEDS: Mirtazapine 30 MG TAB PO SCH (21:44)
[2021-09-17] MEDS: Melatonin 3 MG TAB PO SCH (21:45)
[2021-09-18] MEDS: Ketorolac Tromethamine 30 MG/ML VIAL IVP SCH ×3 (01:27→12:19)
[2021-09-18] MEDS: Cefepime 2 GM in Sodium Chloride 0.9% 100 ML IVPB SCH ×2 (05:44→14:34)
[2021-09-18 07:01] LABS: #Eosinphils 0.2 thou/uL (0.0-0.7); #Lymphocytes 1.8 thou/uL (1.20-3.40); #Monocytes 0.7 thou/uL (0.11-0.59); #Neutrophils 6.6 thou/uL (1.40-6.50); %Basophils 0.4 % (0.0-1.0); %Eosinophils 2.1 % (0.0-10.0); %Lymphocytes 19.7 % (21.0-51.0); %Monocytes 7.4 % (0.0-10.0); %Neutrophils 70.4 % (42.0-75.0); Hemoglobin 10.3 g/dL (14.0-18.0); Mean Corpuscular HGB CONC 31.3 g/dL (32.0-36.0); Mean Corpuscular Volume 86.1 fL (78.0-98.0); Mean Platelet Volume 7.9 fL (7.4-10.4); Platelet Count 327 thou/uL (130-400); RBC Distribution Width 13.9 % (11.5-14.5); Red Blood Cell (RBC) Count 3.83 mill/uL (4.70-6.10); White Blood Cell (WBC) Count 9.4 thou/uL (4.8-10.8)
[2021-09-18] MEDS: Mometasone 200 MCG/Formoterol 5 MCG 120 PUFF INHALER INH SCH (07:10)
[2021-09-18 07:19] LABS: ALT (SGPT) 43 U/L (8-55); AST (SGOT) 37 U/L (5-34); Albumin 2.3 g/dL (3.4-4.8); Alkaline Phosphatase 126 U/L (40-110); Anion Gap 9 mmol/L (10-20); BUN (Urea Nitrogen) 10 mg/dL (8.4-25.7); Bilirubin, Total 0.4 mg/dL (0.2-1.2); Calc. Creatinine Clearance 119 mL/min (70-130); Carbon Dioxide 24 mmol/L (23-31); Chloride 108 mmol/L (98-107); Glucose 71 mg/dL (80-115); Potassium 3.3 mmol/L (3.5-5.1); Protein, Total 6.3 g/dL (5.8-8.1); Sodium 138 mmol/L (136-145)
[2021-09-18] MEDS ORDERED: Potassium Chloride 20 MEQ TAB PO SCH (08:15)
[2021-09-18] MEDS: Gabapentin 300 MG CAP PO SCH (09:06)
[2021-09-18] MEDS: Citalopram 20 MG TAB PO SCH (09:06)
[2021-09-18] MEDS: Enoxaparin Sodium 40 MG/0.4 ML SYRINGE SC SCH (09:06)
[2021-09-18] MEDS: Aspirin 81 mg Enteric Coated Tablet PO SCH (09:06)
[2021-09-18] MEDS: guaiFENesin ER 600 MG TAB PO SCH (09:06)
[2021-09-18] MEDS: Loratadine 10 MG TAB PO SCH (09:06)
[2021-09-18] MEDS: HumaLOG 300 UNITS/3 ML VIAL SC SCH ×2 (09:07→14:34)
[2021-09-18] MEDS: Lantus 1000 UNITS/10 ML VIAL SC SCH (09:07)
[2021-09-18 12:12] VITALS: BP 155/74; TEMP 98.6
[2021-09-18] MEDS: Benzonatate 100 MG CAP PO PRN (12:20)
[2021-09-18] MEDS ORDERED: Vancomycin 1 GM in Premix Bag 1 BAG IVPB SCH (13:00)
== END 2021-09-18 14:43 | disposition home or self-care (01) | DRG 853 ==
LOC: ERS 19:27 → SJJU 21:49 → OBSVTOIN 09-11 09:01
PROVIDERS: ADMIT Student in an Organized Health Care Education/Training Program; ATTEND Student in an Organized Health Care Education/Training Program
PROC: 0BNK4ZZ Release Right Lung, Percutaneous Endoscopic Approach (ICD-10-PCS; principal; 2021-09-15)
DX: A41.02 Sepsis due to Methicillin resistant Staphylococcus aureus (principal); Z20.822 Contact with and (suspected) exposure to COVID-19; J18.9 Pneumonia, unspecified organism; E11.10 Type 2 diabetes mellitus with ketoacidosis without coma; J86.9 Pyothorax without fistula; I50.32 Chronic diastolic (congestive) heart failure; J44.1 Chronic obstructive pulmonary disease with (acute) exacerbation; J44.0 Chronic obstructive pulmonary disease with (acute) lower respiratory infection; E87.4 Mixed disorder of acid-base balance; E78.5 Hyperlipidemia, unspecified; I11.0 Hypertensive heart disease with heart failure; K22.70 Barrett's esophagus without dysplasia; I25.10 Atherosclerotic heart disease of native coronary artery without angina pectoris; F41.9 Anxiety disorder, unspecified; E11.9 Type 2 diabetes mellitus without complications; Z77.22 Contact with and (suspected) exposure to environmental tobacco smoke (acute) (chronic); Y95 Nosocomial condition; R74.01 Elevation of levels of liver transaminase levels; R77.8 Other specified abnormalities of plasma proteins; F15.10 Other stimulant abuse, uncomplicated; F14.10 Cocaine abuse, uncomplicated; F11.10 Opioid abuse, uncomplicated; K13.79 Other lesions of oral mucosa; K21.00 Gastro-esophageal reflux disease with esophagitis, without bleeding; E78.00 Pure hypercholesterolemia, unspecified; M19.90 Unspecified osteoarthritis, unspecified site; E87.6 Hypokalemia; Z90.49 Acquired absence of other specified parts of digestive tract; Z95.0 Presence of cardiac pacemaker; Z88.2 Allergy status to sulfonamides; Z79.899 Other long term (current) drug therapy; Z79.82 Long term (current) use of aspirin; Z79.51 Long term (current) use of inhaled steroids; Z79.4 Long term (current) use of insulin; Z79.52 Long term (current) use of systemic steroids; Z98.890 Other specified postprocedural states; Z90.89 Acquired absence of other organs; Z83.6 Family history of other diseases of the respiratory system; Z83.3 Family history of diabetes mellitus; Z82.49 Family history of ischemic heart disease and other diseases of the circulatory system; Z80.1 Family history of malignant neoplasm of trachea, bronchus and lung; Z81.2 Family history of tobacco abuse and dependence
CPT/HCPCS: 36415; 36416; 36600; 71045; 71250; 80053; 80202; 80306; 82010; 82553; 82805; 83605; 83735; 83880; 84145; 84484; 85025; 85652; 87040; 87070; 87077; 87149; 87186; 87205; 87449; 87899; 93005; 93306; 94640; 96365; 96366; 96368; 96372; 96375; 96376; G0378; J0171; J0692; J1100; J1170; J1650; J1815; J1885; J1956; J2250; J2270; J2405; J2704; J2930; J3010; J3370; J3490; J7120; J7620; S0020; U0002; U0003; U0005

== ENCOUNTER 2021-09-27 12:44 | Outpatient (CLI) | payer MEDICARE, BC | END 2021-09-27 12:45 | disposition home or self-care (01) | LOC: BICRAD 12:44 | PROVIDERS: ATTEND Thoracic Surgery (Cardiothoracic Vascular Surgery) | DX: J86.9 Pyothorax without fistula (principal); R91.8 Other nonspecific abnormal finding of lung field; J90 Pleural effusion, not elsewhere classified | CPT/HCPCS: 71046 ==

== ENCOUNTER 2022-02-10 23:41 | Inpatient (IN) | payer MEDICARE, OTHER ==
[2022-02-11 01:32] VITALS: BMI 26.6
[2022-02-11] MEDS: Ipratropium Bromide 2.5 ml Neb NEB SCH ×5 (07:05→21:57)
[2022-02-11] MEDS ORDERED: Evolocumab [Repatha Sureclick] 140 MG/ML Pen.Injctr DT SCH (09:00)
[2022-02-11] MEDS ORDERED: Dulaglutide [Trulicity] 0.75 MG/0.5 ML Pen.Injctr SC SCH (09:00)
[2022-02-11] MEDS ORDERED: Ergocalciferol 1.25 MG(50,000 UNITS) CAP PO SCH (09:00)
[2022-02-11] MEDS ORDERED: Non-Formulary Item 1 EACH (Dulaglutide [Trulicity] 0.75 MG/0.5 ML Pen.Injctr) SC SCH (10:15)
[2022-02-11] MEDS ORDERED: Non-Formulary Item 1 EACH (Evolocumab [Repatha Sureclick] 140 MG/ML Pen.Injctr) SQ SCH (10:15)
[2022-02-11] MEDS ORDERED: Dextrose 5% in Water 1,000 ML IV PRN (11:29)
[2022-02-11] MEDS ORDERED: Dextrose 50% Abboject 50 ML SYRINGE SLOW IVP PRN (11:29)
[2022-02-11] MEDS: methylPREDNISolone Sod Succ 40 MG VIAL IVP SCH ×3 (12:08→23:35)
[2022-02-11] MEDS: HumaLOG 300 UNITS/3 ML VIAL SC PRN ×2 (12:55→15:16)
[2022-02-11] MEDS: Gabapentin 400 MG CAP PO SCH ×2 (15:14→21:54)
[2022-02-11] MEDS: Mometasone 200 MCG/Formoterol 5 MCG 120 PUFF INHALER INH SCH (18:54)
[2022-02-11] MEDS ORDERED: Mirtazapine 30 MG Soltab PO SCH (21:00)
[2022-02-11] MEDS ORDERED: Fluticasone Propionate HFA 44 MCG AER INH SCH (21:00)
[2022-02-11] MEDS ORDERED: Famotidine 20 MG TAB PO SCH (21:00)
[2022-02-11] MEDS ORDERED: HumaLOG 300 UNITS/3 ML VIAL SC PRN (22:30)
[2022-02-12] MEDS: Ipratropium Bromide 2.5 ml Neb NEB SCH ×2 (02:10→06:51)
[2022-02-12 05:06] LABS: #Lymphocytes 1.4 thou/uL (1.20-3.40); #Monocytes 0.2 thou/uL (0.11-0.59); #Neutrophils 11.2 thou/uL (1.40-6.50); %Basophils 0.3 % (0.0-1.0); %Eosinophils 0.1 % (0.0-10.0); %Lymphocytes 10.9 % (21.0-51.0); %Monocytes 1.7 % (0.0-10.0); Hemoglobin 14.5 g/dL (14.0-18.0); Mean Corpuscular HGB CONC 32.4 g/dL (32.0-36.0); Mean Corpuscular Hemoglobin 26.2 pg (27.0-31.0); Mean Corpuscular Volume 80.7 fL (78.0-98.0); Platelet Count 209 thou/uL (130-400); RBC Distribution Width 14.3 % (11.5-14.5); Red Blood Cell (RBC) Count 5.56 mill/uL (4.70-6.10); White Blood Cell (WBC) Count 12.9 thou/uL (4.8-10.8)
[2022-02-12 05:36] LABS: ALT (SGPT) 10 U/L (8-55); AST (SGOT) 10 U/L (5-34); Albumin 4.2 g/dL (3.4-4.8); Alkaline Phosphatase 90 U/L (40-110); Anion Gap 16 mmol/L (10-20); BUN (Urea Nitrogen) 23 mg/dL (8.4-25.7); Bilirubin, Total 0.5 mg/dL (0.2-1.2); Calc. Creatinine Clearance 73 mL/min (70-130); Calcium 10.2 mg/dL (7.8-10.44); Carbon Dioxide 22 mmol/L (23-31); Chloride 98 mmol/L (98-107); Globulin 3.6 g/dL (2.4-3.5); Glucose 364 mg/dL (80-115); Magnesium 2.3 mg/dL (1.6-2.6); Potassium 4.7 mmol/L (3.5-5.1); Protein, Total 7.8 g/dL (5.8-8.1); Sodium 131 mmol/L (136-145)
[2022-02-12] MEDS: methylPREDNISolone Sod Succ 40 MG VIAL IVP SCH (05:50)
[2022-02-12] MEDS: HumaLOG 300 UNITS/3 ML VIAL SC PRN ×2 (05:50→12:33)
[2022-02-12] MEDS: Mometasone 200 MCG/Formoterol 5 MCG 120 PUFF INHALER INH SCH (06:53)
[2022-02-12 08:19] LABS: Hemoglobin A1c 12.1 % (4.0-6.0)
[2022-02-12] MEDS ORDERED: Non-Formulary Item 1 EACH (Tiotropium Bromide 4 GM Inhaler) IH SCH (09:00)
[2022-02-12] MEDS ORDERED: Aspirin 81 mg Enteric Coated Tablet PO SCH (09:00)
[2022-02-12] MEDS ORDERED: Doxycycline 100 MG CAP PO SCH (09:00)
[2022-02-12] MEDS ORDERED: Losartan 25 MG TAB PO SCH (09:00)
[2022-02-12] MEDS ORDERED: Insulin Glargine 30 UNITS/0.3 ML VIAL SC SCH (09:00)
[2022-02-12] MEDS ORDERED: Citalopram 20 MG TAB PO SCH (09:00)
[2022-02-12] MEDS: Gabapentin 400 MG CAP PO SCH (09:17)
[2022-02-12 12:39] VITALS: BP 120/72; TEMP 97.6
[2022-02-12] MEDS ORDERED: methylPREDNISolone Sod Succ 40 MG VIAL IVP SCH (14:00)
== END 2022-02-12 15:48 | disposition home or self-care (01) | DRG 189 ==
LOC: 2SW 02-11 01:29
PROVIDERS: ADMIT Internal Medicine; ATTEND Internal Medicine
DX: J96.01 Acute respiratory failure with hypoxia (principal); J44.1 Chronic obstructive pulmonary disease with (acute) exacerbation; I10 Essential (primary) hypertension; E11.65 Type 2 diabetes mellitus with hyperglycemia; E78.5 Hyperlipidemia, unspecified; Z88.2 Allergy status to sulfonamides; Z79.899 Other long term (current) drug therapy; Z79.82 Long term (current) use of aspirin; Z79.51 Long term (current) use of inhaled steroids; Z90.49 Acquired absence of other specified parts of digestive tract; Z82.49 Family history of ischemic heart disease and other diseases of the circulatory system
CPT/HCPCS: 36415; 36416; 80053; 83036; 83735; 85025; 94640; J1815; J1956; J2920; J7620

== ENCOUNTER 2022-03-02 09:35 | Outpatient (CLI) | payer MEDICARE | END 2022-03-02 09:36 | disposition home or self-care (01) | LOC: RAD 09:35 | PROVIDERS: ATTEND Internal Medicine Critical Care Medicine | DX: R06.00 Dyspnea, unspecified (principal); J67.9 Hypersensitivity pneumonitis due to unspecified organic dust | CPT/HCPCS: 36415; 71046; 86331; 86602; 86606; 86671 ==

== ENCOUNTER 2022-06-10 12:30 | Inpatient (IN) | payer MEDICARE, OTHER ==
[2022-06-10] MEDS ORDERED: Acetaminophen 325 MG TAB PO PRN ×2 (16:49→17:30)
[2022-06-10] MEDS ORDERED: Dextrose 5% in Water 1,000 ML IV PRN (17:27)
[2022-06-10] MEDS ORDERED: HumaLOG 300 UNITS/3 ML VIAL SC PRN (17:27)
[2022-06-10] MEDS ORDERED: Dextrose 50% Abboject 50 ML SYRINGE SLOW IVP PRN (17:27)
[2022-06-10] MEDS: HumaLOG 300 UNITS/3 ML VIAL SC PRN (18:28)
[2022-06-10] MEDS ORDERED: Dulaglutide [Trulicity] 0.75 MG/0.5 ML Pen.Injctr SC SCH (18:30)
[2022-06-10] MEDS ORDERED: Vancomycin 1.5 GRAM/300 ML BAG 1.5 GM in Premix Bag 1 BAG IVPB SCH (21:00)
[2022-06-10] MEDS: Insulin Glargine 30 UNITS/0.3 ML VIAL SC SCH (22:31)
[2022-06-10] MEDS: Enoxaparin Sodium 80 MG/0.8 ML SYRINGE SC SCH (22:31)
[2022-06-10] MEDS: Mirtazapine 30 MG Soltab PO SCH (22:34)
[2022-06-10] MEDS: Gabapentin 400 MG CAP PO SCH (22:34)
[2022-06-10] MEDS: Cefepime 2 GM in Sodium Chloride 0.9% 100 ML IVPB SCH (22:36)
[2022-06-10] MEDS: VANCOMYCIN 1.25 GM/250 ML BAG 1.25 GM in Premix Bag 1 BAG IVPB SCH (22:36)
[2022-06-10] MEDS ORDERED: Benzonatate 100 MG CAP PO PRN (23:57)
[2022-06-11] MEDS ORDERED: Benzonatate 100 MG CAP PO SCH (00:30)
[2022-06-11] MEDS ORDERED: Lidocaine 2% Viscous Solution 10 ML, Aluminum & Magnesium Hydroxide 30 ML SSW SCH (00:30)
[2022-06-11 00:39] LABS: Troponin I Less than 0.010 ng/mL (< 0.028)
[2022-06-11 07:15] LABS: #Basophils 0.1 thou/uL (0.0-0.2); #Eosinphils 0.2 thou/uL (0.0-0.7); #Lymphocytes 1.5 thou/uL (1.20-3.40); #Monocytes 0.7 thou/uL (0.11-0.59); #Neutrophils 6.8 thou/uL (1.40-6.50); %Basophils 0.7 % (0.0-1.0); %Eosinophils 1.8 % (0.0-10.0); %Lymphocytes 16.1 % (21.0-51.0); %Monocytes 7.7 % (0.0-10.0); %Neutrophils 73.8 % (42.0-75.0); Hemoglobin 12.9 g/dL (14.0-18.0); Mean Corpuscular HGB CONC 31.1 g/dL (32.0-36.0); Mean Corpuscular Hemoglobin 26.2 pg (27.0-31.0); Mean Corpuscular Volume 84.2 fL (78.0-98.0); Mean Platelet Volume 8.6 fL (7.4-10.4); Platelet Count 289 thou/uL (130-400); RBC Distribution Width 13.8 % (11.5-14.5); Red Blood Cell (RBC) Count 4.92 mill/uL (4.70-6.10); White Blood Cell (WBC) Count 9.2 thou/uL (4.8-10.8)
[2022-06-11 07:37] LABS: ALT (SGPT) 49 U/L (8-55); AST (SGOT) 41 U/L (5-34); Albumin 3.3 g/dL (3.4-4.8); Alkaline Phosphatase 184 U/L (40-110); Anion Gap 13 mmol/L (10-20); BUN (Urea Nitrogen) 7 mg/dL (8.4-25.7); Bilirubin, Total 0.5 mg/dL (0.2-1.2); Calc. Creatinine Clearance 102 mL/min (70-130); Calcium 9.1 mg/dL (7.8-10.44); Carbon Dioxide 26 mmol/L (23-31); Chloride 101 mmol/L (98-107); Estimated GFR 100; Globulin 3.8 g/dL (2.4-3.5); Glucose 155 mg/dL (80-115); Potassium 3.8 mmol/L (3.5-5.1); Protein, Total 7.1 g/dL (5.8-8.1); Sodium 136 mmol/L (136-145)
[2022-06-11] MEDS: Mometasone 100 MCG/PUFF (1 INHALER) INH SCH ×2 (07:43→17:44)
[2022-06-11] MEDS ORDERED: Famotidine 20 MG TAB PO SCH (09:00)
[2022-06-11] MEDS: Gabapentin 400 MG CAP PO SCH ×3 (09:53→21:34)
[2022-06-11] MEDS: Aspirin 81 mg Enteric Coated Tablet PO SCH (09:54)
[2022-06-11] MEDS: Citalopram 20 MG TAB PO SCH (09:54)
[2022-06-11] MEDS: Losartan 25 MG TAB PO SCH (09:55)
[2022-06-11] MEDS: Insulin Glargine 30 UNITS/0.3 ML VIAL SC SCH ×2 (09:55→21:39)
[2022-06-11] MEDS: VANCOMYCIN 1.25 GM/250 ML BAG 1.25 GM in Premix Bag 1 BAG IVPB SCH ×2 (09:56→21:38)
[2022-06-11] MEDS: Enoxaparin Sodium 80 MG/0.8 ML SYRINGE SC SCH ×2 (09:56→21:37)
[2022-06-11] MEDS ORDERED: Calcium Carbonate 500 MG ChewTAB PO PRN (10:41)
[2022-06-11] MEDS: HumaLOG 300 UNITS/3 ML VIAL SC PRN ×2 (13:12→17:16)
[2022-06-11] MEDS: Cefepime 2 GM in Sodium Chloride 0.9% 100 ML IVPB SCH ×2 (15:46→23:40)
[2022-06-11 20:19] LABS: Vancomycin, Trough 14.8 ug/mL
[2022-06-11] MEDS: Mirtazapine 30 MG Soltab PO SCH (21:35)
[2022-06-12 05:49] LABS: #Eosinphils 0.2 thou/uL (0.0-0.7); #Lymphocytes 1.6 thou/uL (1.20-3.40); #Monocytes 0.6 thou/uL (0.11-0.59); #Neutrophils 6.2 thou/uL (1.40-6.50); %Basophils 0.5 % (0.0-1.0); %Eosinophils 2.6 % (0.0-10.0); %Lymphocytes 18.5 % (21.0-51.0); %Monocytes 7.2 % (0.0-10.0); %Neutrophils 71.1 % (42.0-75.0); Mean Corpuscular HGB CONC 30.7 g/dL (32.0-36.0); Mean Corpuscular Volume 84.9 fl (78.0-98.0); Mean Platelet Volume 8.6 fL (7.4-10.4); Platelet Count 330 thou/uL (130-400); RBC Distribution Width 13.8 % (11.5-14.5); Red Blood Cell (RBC) Count 4.99 mill/uL (4.70-6.10); White Blood Cell (WBC) Count 8.6 thou/uL (4.8-10.8)
[2022-06-12 06:07] LABS: ALT (SGPT) 37 U/L (8-55); AST (SGOT) 19 U/L (5-34); Albumin 3.3 g/dL (3.4-4.8); Alkaline Phosphatase 168 U/L (40-110); Anion Gap 12 mmol/L (10-20); BUN (Urea Nitrogen) 7 mg/dL (8.4-25.7); Bilirubin, Total 0.4 mg/dL (0.2-1.2); Calc. Creatinine Clearance 90 mL/min (70-130); Carbon Dioxide 27 mmol/L (23-31); Chloride 105 mmol/L (98-107); Estimated GFR 94; Globulin 3.8 g/dL (2.4-3.5); Glucose 111 mg/dL (80-115); Potassium 3.6 mmol/L (3.5-5.1); Protein, Total 7.1 g/dL (5.8-8.1); Sodium 140 mmol/L (136-145)
[2022-06-12 06:27] LABS: HBCM Index 0.12 S/CO (0-0.79); HIV (1/2) Antibody/Antigen Non-Reactive (NonReactive); HIV 1/2 INDEX 0.22 S/CO (<1.00); Hep A IgM AB Non-Reactive (NonReactive); Hep A IgM S/CO 0.21 S/CO (0-0.79); Hep B Surf Ag Non-Reactive S/CO (NonReactive); Hep C IgG Ab Non-Reactive (NonReactive); Hep C Index 0.12 S/CO (0-0.79); Hepatitis B Core IgM Abs Non-Reactive (NonReactive)
[2022-06-12] MEDS: Mometasone 100 MCG/PUFF (1 INHALER) INH SCH ×2 (07:39→18:52)
[2022-06-12] MEDS: Citalopram 20 MG TAB PO SCH (09:27)
[2022-06-12] MEDS: Losartan 25 MG TAB PO SCH (09:28)
[2022-06-12] MEDS: Gabapentin 400 MG CAP PO SCH ×3 (09:28→21:14)
[2022-06-12] MEDS: Aspirin 81 mg Enteric Coated Tablet PO SCH (09:28)
[2022-06-12] MEDS: Insulin Glargine 30 UNITS/0.3 ML VIAL SC SCH ×2 (09:29→21:15)
[2022-06-12] MEDS: Enoxaparin Sodium 80 MG/0.8 ML SYRINGE SC SCH (09:34)
[2022-06-12] MEDS: VANCOMYCIN 1.25 GM/250 ML BAG 1.25 GM in Premix Bag 1 BAG IVPB SCH (09:35)
[2022-06-12 11:30] LABS: Syphilis Antibody Nonreactive (Nonreactive); Syphilis Antibody Index 0.08 S/CO (<1.00 Non-Reactive)
[2022-06-12] MEDS: Cefepime 2 GM in Sodium Chloride 0.9% 100 ML IVPB SCH (11:43)
[2022-06-12] MEDS: HumaLOG 300 UNITS/3 ML VIAL SC PRN (11:43)
[2022-06-12] MEDS ORDERED: Piperacillin/Tazobactam 3.375 GM in Sodium Chloride 0.9% 100 ML IVPB SCH (13:15)
[2022-06-12] MEDS: Piperacillin/Tazobactam 3.375 GM in Sodium Chloride 0.9% 100 ML IVPB SCH (17:34)
[2022-06-12] MEDS: Mirtazapine 30 MG Soltab PO SCH (21:14)
[2022-06-12] MEDS: Apixaban 5 MG TAB PO SCH (21:14)
[2022-06-13] MEDS: Piperacillin/Tazobactam 3.375 GM in Sodium Chloride 0.9% 100 ML IVPB SCH ×3 (02:08→17:57)
[2022-06-13 05:58] LABS: #Eosinphils 0.3 thou/uL (0.0-0.7); #Lymphocytes 1.3 thou/uL (1.20-3.40); #Monocytes 0.5 thou/uL (0.11-0.59); #Neutrophils 4.9 thou/uL (1.40-6.50); %Basophils 0.6 % (0.0-1.0); %Eosinophils 4.1 % (0.0-10.0); %Lymphocytes 18.9 % (21.0-51.0); %Neutrophils 69.5 % (42.0-75.0); Hemoglobin 11.4 g/dL (14.0-18.0); Mean Corpuscular HGB CONC 31.8 g/dL (32.0-36.0); Mean Corpuscular Hemoglobin 26.6 pg (27.0-31.0); Mean Corpuscular Volume 83.8 fl (78.0-98.0); Mean Platelet Volume 8.5 fL (7.4-10.4); Platelet Count 308 thou/uL (130-400); RBC Distribution Width 13.8 % (11.5-14.5); Red Blood Cell (RBC) Count 4.29 mill/uL (4.70-6.10); White Blood Cell (WBC) Count 7.1 thou/uL (4.8-10.8)
[2022-06-13] MEDS: Mometasone 100 MCG/PUFF (1 INHALER) INH SCH ×2 (06:42→18:17)
[2022-06-13 07:12] LABS: ALT (SGPT) 29 U/L (8-55); AST (SGOT) 25 U/L (5-34); Albumin 2.9 g/dL (3.4-4.8); Alkaline Phosphatase 142 U/L (40-110); Anion Gap 13 mmol/L (10-20); BUN (Urea Nitrogen) 7 mg/dL (8.4-25.7); Bilirubin, Total 0.2 mg/dL (0.2-1.2); Calc. Creatinine Clearance 86 mL/min (70-130); Calcium 8.8 mg/dL (7.8-10.44); Carbon Dioxide 23 mmol/L (23-31); Chloride 104 mmol/L (98-107); Estimated GFR 88; Globulin 3.9 g/dL (2.4-3.5); Glucose 181 mg/dL (80-115); Potassium 3.9 mmol/L (3.5-5.1); Protein, Total 6.8 g/dL (5.8-8.1); Sodium 136 mmol/L (136-145)
[2022-06-13 07:19] LABS: HIV (1/2) Antibody/Antigen Non-Reactive (NonReactive); HIV 1/2 INDEX 0.19 S/CO (<1.00)
[2022-06-13] MEDS: Gabapentin 400 MG CAP PO SCH ×3 (09:54→22:40)
[2022-06-13] MEDS: Citalopram 20 MG TAB PO SCH (09:55)
[2022-06-13] MEDS: Apixaban 5 MG TAB PO SCH ×2 (09:55→22:43)
[2022-06-13] MEDS: Aspirin 81 mg Enteric Coated Tablet PO SCH (09:55)
[2022-06-13] MEDS: Insulin Glargine 30 UNITS/0.3 ML VIAL SC SCH ×2 (09:55→22:43)
[2022-06-13] MEDS: Losartan 25 MG TAB PO SCH (09:55)
[2022-06-13 10:27] VITALS: BMI 26.4
[2022-06-13] MEDS: Mirtazapine 30 MG Soltab PO SCH (22:43)
[2022-06-14] MEDS: Piperacillin/Tazobactam 3.375 GM in Sodium Chloride 0.9% 100 ML IVPB SCH ×3 (01:55→17:23)
[2022-06-14] MEDS: HumaLOG 300 UNITS/3 ML VIAL SC PRN (05:23)
[2022-06-14 06:04] LABS: #Basophils 0.1 thou/uL (0.0-0.2); #Eosinphils 0.3 thou/uL (0.0-0.7); #Lymphocytes 1.4 thou/uL (1.20-3.40); #Monocytes 0.4 thou/uL (0.11-0.59); #Neutrophils 4.4 thou/uL (1.40-6.50); %Basophils 0.9 % (0.0-1.0); %Eosinophils 4.3 % (0.0-10.0); %Lymphocytes 21.6 % (21.0-51.0); %Monocytes 6.5 % (0.0-10.0); %Neutrophils 66.7 % (42.0-75.0); Hemoglobin 11.8 g/dL (14.0-18.0); Mean Corpuscular HGB CONC 31.4 g/dL (32.0-36.0); Mean Corpuscular Hemoglobin 26.6 pg (27.0-31.0); Mean Corpuscular Volume 84.7 fl (78.0-98.0); Mean Platelet Volume 8.4 fL (7.4-10.4); Platelet Count 335 thou/uL (130-400); RBC Distribution Width 13.8 % (11.5-14.5); Red Blood Cell (RBC) Count 4.43 mill/uL (4.70-6.10); White Blood Cell (WBC) Count 6.5 thou/uL (4.8-10.8)
[2022-06-14 06:28] LABS: ALT (SGPT) 29 U/L (8-55); AST (SGOT) 28 U/L (5-34); Albumin 3.2 g/dL (3.4-4.8); Alkaline Phosphatase 142 U/L (40-110); Anion Gap 13 mmol/L (10-20); BUN (Urea Nitrogen) 7 mg/dL (8.4-25.7); Bilirubin, Total 0.3 mg/dL (0.2-1.2); Calc. Creatinine Clearance 88 mL/min (70-130); Calcium 8.8 mg/dL (7.8-10.44); Carbon Dioxide 25 mmol/L (23-31); Chloride 103 mmol/L (98-107); Estimated GFR 91; Globulin 3.6 g/dL (2.4-3.5); Glucose 248 mg/dL (80-115); Potassium 3.8 mmol/L (3.5-5.1); Protein, Total 6.8 g/dL (5.8-8.1); Sodium 137 mmol/L (136-145)
[2022-06-14] MEDS: Mometasone 100 MCG/PUFF (1 INHALER) INH SCH ×2 (06:33→18:30)
[2022-06-14] MEDS: Gabapentin 400 MG CAP PO SCH ×3 (08:25→20:41)
[2022-06-14] MEDS: Losartan 25 MG TAB PO SCH (08:26)
[2022-06-14] MEDS: Aspirin 81 mg Enteric Coated Tablet PO SCH (08:26)
[2022-06-14] MEDS: Citalopram 20 MG TAB PO SCH (08:26)
[2022-06-14] MEDS: Apixaban 5 MG TAB PO SCH ×2 (08:26→20:40)
[2022-06-14] MEDS: Insulin Glargine 30 UNITS/0.3 ML VIAL SC SCH ×2 (08:27→20:38)
[2022-06-14] MEDS: Mirtazapine 30 MG Soltab PO SCH (20:40)
[2022-06-15] MEDS: Piperacillin/Tazobactam 3.375 GM in Sodium Chloride 0.9% 100 ML IVPB SCH ×2 (02:05→09:07)
[2022-06-15] MEDS: HumaLOG 300 UNITS/3 ML VIAL SC PRN (05:10)
[2022-06-15 05:41] LABS: #Basophils 0.1 thou/uL (0.0-0.2); #Eosinphils 0.4 thou/uL (0.0-0.7); #Lymphocytes 1.6 thou/uL (1.20-3.40); #Monocytes 0.5 thou/uL (0.11-0.59); #Neutrophils 4.9 thou/uL (1.40-6.50); %Eosinophils 5.3 % (0.0-10.0); %Lymphocytes 21.2 % (21.0-51.0); %Monocytes 6.9 % (0.0-10.0); %Neutrophils 65.6 % (42.0-75.0); Hemoglobin 11.9 g/dL (14.0-18.0); Mean Corpuscular HGB CONC 30.8 g/dL (32.0-36.0); Mean Corpuscular Hemoglobin 25.9 pg (27.0-31.0); Mean Corpuscular Volume 83.8 fl (78.0-98.0); Mean Platelet Volume 8.2 fL (7.4-10.4); Platelet Count 393 thou/uL (130-400); Red Blood Cell (RBC) Count 4.59 mill/uL (4.70-6.10); White Blood Cell (WBC) Count 7.4 thou/uL (4.8-10.8)
[2022-06-15 06:06] LABS: ALT (SGPT) 26 U/L (8-55); AST (SGOT) 21 U/L (5-34); Albumin 3.4 g/dL (3.4-4.8); Alkaline Phosphatase 134 U/L (40-110); Anion Gap 12 mmol/L (10-20); BUN (Urea Nitrogen) 8 mg/dL (8.4-25.7); Bilirubin, Total 0.2 mg/dL (0.2-1.2); Calc. Creatinine Clearance 103 mL/min (70-130); Calcium 9.3 mg/dL (7.8-10.44); Carbon Dioxide 26 mmol/L (23-31); Chloride 102 mmol/L (98-107); Estimated GFR 100; Globulin 3.8 g/dL (2.4-3.5); Glucose 140 mg/dL (80-115); Protein, Total 7.2 g/dL (5.8-8.1); Sodium 136 mmol/L (136-145)
[2022-06-15] MEDS: Mometasone 100 MCG/PUFF (1 INHALER) INH SCH (07:31)
[2022-06-15] MEDS: Aspirin 81 mg Enteric Coated Tablet PO SCH (09:06)
[2022-06-15] MEDS: Gabapentin 400 MG CAP PO SCH (09:06)
[2022-06-15] MEDS: Citalopram 20 MG TAB PO SCH (09:06)
[2022-06-15] MEDS: Losartan 25 MG TAB PO SCH (09:06)
[2022-06-15] MEDS: Apixaban 5 MG TAB PO SCH (09:07)
[2022-06-15] MEDS: Insulin Glargine 30 UNITS/0.3 ML VIAL SC SCH (09:07)
[2022-06-15 12:51] LABS: QuantiFERON-TB Gold Plus Negative (Negative)
[2022-06-15 14:37] VITALS: BP 121/74; TEMP 98.1
== END 2022-06-15 14:14 | disposition home or self-care (01) | DRG 177 ==
LOC: SURG A 14:58
PROVIDERS: ADMIT Family Medicine; ATTEND Family Medicine
PROC: 8E0ZXY6 Isolation (ICD-10-PCS; principal; 2022-06-10)
DX: J85.1 Abscess of lung with pneumonia (principal); I26.99 Other pulmonary embolism without acute cor pulmonale; I50.33 Acute on chronic diastolic (congestive) heart failure; J44.0 Chronic obstructive pulmonary disease with (acute) lower respiratory infection; I11.0 Hypertensive heart disease with heart failure; Z20.822 Contact with and (suspected) exposure to COVID-19; E78.5 Hyperlipidemia, unspecified; E11.9 Type 2 diabetes mellitus without complications; K22.70 Barrett's esophagus without dysplasia; K21.9 Gastro-esophageal reflux disease without esophagitis; I25.10 Atherosclerotic heart disease of native coronary artery without angina pectoris; Z88.2 Allergy status to sulfonamides; Z95.0 Presence of cardiac pacemaker; Z79.82 Long term (current) use of aspirin; Z79.4 Long term (current) use of insulin; Z79.899 Other long term (current) drug therapy; Z90.49 Acquired absence of other specified parts of digestive tract
CPT/HCPCS: 36415; 36416; 80053; 80074; 80202; 82103; 84484; 85025; 86480; 86780; 87116; 87206; 87389; 93005; 93010; 94640; J0692; J1650; J1815; J2543; J3370; J3490; J7620